=== PATIENT | female | born 1965 | race Caucasian/White ===

== ENCOUNTER 2017-05-03 20:30 | Inpatient (IN) | payer OTHER ==
[~2017-05-03] VITALS: Ht 172.7 cm; Wt 122.0 kg
[~2017-05-03 20:30] MED LIST: ALBU8.5H3 INH; ALBU8.5H5 IH; CLIN-73 PO; FAMO-95 PO; FLUT9.9S NASAL; GUAI-637 PO; HYDR-842 PO; RIVA20TA PO
[2017-05-03] MEDS ORDERED: PIPER-TAZO 3.375 GM IV (PMX) 100 ML IVPB STA (20:41)
[2017-05-03] MEDS ORDERED: ACETAMINOPHEN 325 MG TAB PO STA (20:56)
[2017-05-03] MEDS ORDERED: SODIUM CHLORIDE 0.9% 1L BAG IV* STA (20:56)
[2017-05-03] MEDS ORDERED: VANCOMYCIN 1 GM (PMX) 250 ML IVPB ONE ×2 (21:00→23:14)
[2017-05-03] MEDS ORDERED: HYDROmorphONE 1 MG/ML SYG IV STA (21:01)
[2017-05-03] MEDS ORDERED: ONDANSETRON 4 MG INJ IV STA (21:01)
--- NOTE | 2017-05-03 21:20 | RADRPT ---
PROCEDURE: XR Chest. CLINICAL INDICATION: Possible sepsis. TECHNIQUE: Single frontal view of the chest. Apical lordotic position. COMPARISON: 11/07/2015 FINDINGS: Heart size is mildly enlarged. Small hiatal hernia. The lungs are clear. No signs of pleural fluid o r pneumothorax are seen. The osseous structures and soft tissues are unremarkable. IMPRESSION: No evidence for active cardiopulmonary disease. RPTAT: [facility] Physician Jasmin Date Time Electronically viewed and signed by Nehemiah Shaw Physician on 05/03/2017 21:19 RS/
[2017-05-03] MEDS ORDERED: FURO40TA4 PO (21:34)
[2017-05-03] MEDS ORDERED: FURO20TA3 PO (21:34)
[2017-05-03] MEDS ORDERED: IBUP800T25 PO (21:35)
[2017-05-03] MEDS ORDERED: NAPR-688 PO (21:35)
[2017-05-03] MEDS ORDERED: FLUT12HF2 IH (21:36)
[2017-05-03] MEDS ORDERED: ALBU18HF INHALATION (21:36)
[2017-05-03 21:40] LABS: BASOPHIL # 0.1 10^3/ul (0.0-0.1); BASOPHILS % 0.4 % (0.0-2.0); EOSINOPHILS # 0.2 10^3/ul (0.0-0.5); EOSINOPHILS % 2.1 % (0.0-7.0); HEMATOCRIT 27.5 % (37.0-47.0); LYMPHOCYTES # 1.9 10^3/ul (0.8-2.9); LYMPHOCYTES % 17.1 % (15.0-51.0); MEAN CORPUSCULAR HEMOGLOBIN 22.5 pg (29.0-33.0); MEAN CORPUSCULAR HGB CONC 29.1 g/dl (32.0-37.0); MEAN CORPUSCULAR VOLUME 77.2 fl (82.0-101.0); MEAN PLATELET VOLUME 9.2 fl (7.4-10.4); MONOCYTE # 0.8 10^3/ul (0.3-0.9); MONOCYTES % 7.3 % (0.0-11.0); NEUTROPHIL # 8.1 10^3/ul (1.6-7.5); NEUTROPHILS % 72.2 % (39.0-77.0); NUCLEATED RED BLOOD CELLS% 0.3 /100WBC (0.0-0.0); PLATELET COUNT 335 10^3/UL (140-415); RED BLOOD COUNT 3.56 10^6/ul (4.20-5.40); RED CELL DISTRIBUTION WIDTH 18.9 % (11.5-14.5); WHITE BLOOD COUNT 11.2 10^3/ul (4.8-10.8)
[2017-05-03 21:44] LABS: INR 1.09; PROTIME 14.1 Sec (12.2-14.2); PT RATIO 1.1
[2017-05-03 21:45] LABS: PARTIAL THROMBOPLASTIN TIME 41.6 Sec (25.0-35.0)
[2017-05-03] MEDS ORDERED: ONDANSETRON 4 MG INJ IV PRN (22:00)
[2017-05-03] MEDS ORDERED: ACETAMINOPHEN 325 MG TAB PO PRN (22:00)
[2017-05-03 22:01] LABS: ALBUMIN/GLOBULIN RATIO 0.81; ANION GAP 10 (8-16)
[2017-05-03 22:04] LABS: ALANINE AMINOTRANSFERASE 27 IU/L (13-69); ALBUMIN 3.5 g/dl (3.3-4.9); ALKALINE PHOSPHATASE 120 IU/L (42-121); ASPARTATE AMINO TRANSFERASE 27 IU/L (15-46); BILIRUBIN,INDIRECT 0.4 mg/dl (0-1.1); BILIRUBIN,TOTAL 0.4 mg/dl (0.2-1.3); BLOOD UREA NITROGEN 10 mg/dl (7-20); CALCIUM 8.9 mg/dl (8.4-10.2); CARBON DIOXIDE 30 mmol/L (21-31); CHLORIDE 101 mmol/L (97-110); CREATININE 0.73 mg/dl (0.44-1.00); GLUCOSE 109 mg/dl (70-220); POTASSIUM 3.8 mmol/L (3.5-5.1); SODIUM 137 mmol/L (135-144); TOTAL PROTEIN 7.8 g/dl (6.1-8.1)
[2017-05-03 22:12] LABS: ADD UMIC YES; UR ASCORBIC ACID NEGATIVE (NEGATIVE); UR BILIRUBIN (Dip) NEGATIVE (NEGATIVE); UR BLOOD (Dip) NEGATIVE (NEGATIVE); UR CLARITY CLEAR (CLEAR); UR COLOR YELLOW (YELLOW); UR GLUCOSE (Dip) NEGATIVE (NEGATIVE); UR KETONES (Dip) NEGATIVE (NEGATIVE); UR LEUKOCYTE ESTERASE (Dip) NEGATIVE Leu/ul (NEGATIVE); UR MUCUS MANY /HPF (NONE SEEN); UR NITRITE (Dip) NEGATIVE (NEGATIVE); UR RBC 0 /HPF (0-5); UR SPECIFIC GRAVITY (Dip) 1.023 (1.003-1.030); UR SQUAMOUS EPITHELIAL CELL FEW /HPF (FEW); UR TOTAL PROTEIN (Dip) 1+ mg/dl (NEGATIVE); UR UROBILINOGEN (Dip) 2+ mg/dL (NEGATIVE)
[2017-05-03 22:13] LABS: TROPONIN-I < 0.012 ng/ml (0.00-0.12)
[2017-05-03 23:10] VITALS: TEMP 98.7
--- NOTE | 2017-05-03 23:29 | ERA ---
ER Documentation Chief Complaint Date/Time DATE: 05/03/17 TIME: 23:27 Chief Complaint BILATERAL LEG PAIN/EDEMA HPI Patient is a 51-year-old female with previous cellulitis who presents with bilateral lower extremity edema and infection. The patient was brought in by ambulance. She says that she had a recent admission to [place] 2 weeks ago and was supposed to be on antibiotics but could not get her Zyvox filled because of insurance. She says that she has pus from her bilateral lower extremities with oozing. Upon review of old medical records the patient has multiple visits to the hospital with admissions for cellulitis. She does not currently have a primary doctor. ROS All systems reviewed and are negative except as per history of present illness. Medications Home Meds Reported Medications Salmeterol Xinaf-Fluticasone* (Advair HFA*) 115/ Aerosol Inhaler, 2 INH IH BID , #1 INHALER 05/03/17 Albuterol Sulfate* (Ventolin HFA*) 18 Gm Hfa.aer.ad, 2 PUFF INHALATION Q6H, #1 INHALER 05/03/17 Naproxen* (Naproxen*) 500 Mg Tablet, 500 MG PO TID, TAB 05/03/17 Ibuprofen* (Ibuprofen*) 800 Mg Tab, 800 MG PO Q12 Y for PAIN, TAB 05/03/17 Furosemide* (Furosemide*) 40 Mg Tablet, 40 MG PO Q2D, TAB 05/03/17 Furosemide* (Furosemide*) 20 Mg Tablet, 20 MG PO Q2D, #60 TAB 05/03/17 Discontinued Scripts Fluticasone Propionate (Flonase Allergy Relief) 9.9 Ml [place].susp, 1 SPRAY NASAL BID for 30 Days, BOTTLE 4 Refills TO EACH NOSTRIL Prov:DOUGLAS JIMÉNEZ S. 11/11/15 Albuterol Sulfate* (Proair HFA*) 8.5 Gm Hfa.aer.ad, 2 PUFF INH Q4H Y for WHEEZING AND SOB for 30 Days, INHALER 4 Refills Prov:NORIS JIMÉNEZEEP S. 11/11/15 Guaifenesin* (Robitussin*) 100 Mg/5 Ml Syrup, 200 MG PO Q4H Y for COUGH for 14 Days, ML Prov:MARIA T JIMÉNEZP S. 11/11/15 Clindamycin Hcl* (Clindamycin Hcl*) 300 Mg Capsule, 300 MG PO Q8 for 7 Days, CAP Prov:RAHI,DOUGLAS S. 11/11/15 Famotidine* (Pepcid* AC) 20 Mg Tab, 20 MG PO Q12 for 30 Days, TAB Prov:RAHI,DOUGLAS S. 11/11/15 Hydroxyzine Hcl* (Atarax*) 25 Mg Tab, 25 MG PO TID for 30 Days, TAB Prov:RAHI,DOUGLAS S. 11/11/15 Rivaroxaban* (Xarelto*) 20 Mg Tablet, 20 MG PO WITH DINNER for 30 Days, TAB 2 Refills Prov:RAHI,DOUGLAS S. 11/11/15 Albuterol Sulfate* (Albuterol Sulfate* HFA) 8.5 Gm Hfa.aer.ad, 2 PUFF IH Q4H Y for WHEEZING AND SOB, #1 INH Prov:LADONNA TEJADA 03/24/15 Allergies Allergies: Coded Allergies: No Known Allergy (Unverified , 05/03/17) PMhx/Soc History of Surgery: Yes (Right hip replacement- 1996, ear surgeries as a child) Anesthesia Reaction: No Hx Neurological Disorder: No Hx Respiratory Disorders: Yes (Asthma, COPD) Hx Cardiac Disorders: No Hx Psychiatric Problems: No Hx Miscellaneous Medical Probl: No Hx Alcohol Use: Yes (1/2 pint of beer, vodka daily) Hx Substance Use: Yes (METH) Hx Tobacco Use: Yes (Smokes some days) Smoking Status: Smoker,current status unk FmHx Family History: diabetes Physical Exam Vitals Vital Signs Date Time Temp Pulse Resp B/P Pulse Ox O2 Delivery O2 Flow Rate FiO2 05/03/17 23:10 98.7 110 16 128/78 100 Room Air 05/03/17 20:45 100.1 116 16 133/89 100 Physical Exam Const: Moderate distress secondary to pain Head: Atraumatic Eyes: Normal Conjunctiva ENT: Normal External Ears, Nose and Mouth. Neck: Full range of motion..~ No meningismus. Resp: Clear to auscultation bilaterally Cardio: Regular rate and rhythm, no murmurs Abd: Soft, non tender, non distended. Normal bowel sounds Skin: Bilateral lower extremity edema with oozing and redness consistent with cellulitis Back: No midline or flank tenderness Ext: No cyanosis, or edema Neur: Awake and alert Psych: Normal Mood and Affect Result Diagram: 05/03/17 2113 05/03/17 1354 Results 24 hrs Laboratory Tests Test 05/03/17 13:54 05/03/17 21:13 05/03/17 21:40 Prothrombin Time 14.1Sec Prothrombin Time Ratio 1.1 INR International Normalized Ratio 1.09 Activated Partial Thromboplast Time 41.6Sec Sodium Level 137mmol/L Potassium Level 3.8mmol/L Chloride Level 101mmol/L Carbon Dioxide Level 30mmol/L Anion Gap 10 Blood Urea Nitrogen 10mg/dl Creatinine 0.73mg/dl Glucose Level 109mg/dl Lactic Acid Level 1.2mmol/L Calcium Level 8.9mg/dl Total Bilirubin 0.4mg/dl Direct Bilirubin 0.00mg/dl Indirect Bilirubin 0.4mg/dl Aspartate Amino Transf (AST/SGOT) 27IU/L Alanine Aminotransferase (ALT/SGPT) 27IU/L Alkaline Phosphatase 120IU/L Troponin I < 0.012ng/ml Total Protein 7.8g/dl Albumin 3.5g/dl Globulin 4.30g/dl Albumin/Globulin Ratio 0.81 White Blood Count 11.210^3/ul Red Blood Count 3.5610^6/ul Hemoglobin 8.0g/dl Hematocrit 27.5% Mean Corpuscular Volume 77.2fl Mean Corpuscular Hemoglobin 22.5pg Mean Corpuscular Hemoglobin Concent 29.1g/dl Red Cell Distribution Width 18.9% Platelet Count 58784^3/UL Mean Platelet Volume 9.2fl Neutrophils % 72.2% Lymphocytes % 17.1% Monocytes % 7.3% Eosinophils % 2.1% Basophils % 0.4% Nucleated Red Blood Cells % 0.3/100WBC Neutrophils # 8.110^3/ul Lymphocytes # 1.910^3/ul Monocytes # 0.810^3/ul Eosinophils # 0.210^3/ul Basophils # 0.110^3/ul Nucleated Red Blood Cells # 0.010^3/ul Urine Color YELLOW Urine Clarity CLEAR Urine pH 5.0 Urine Specific [place] 1.023 Urine Ketones NEGATIVEmg/dL Urine Nitrite NEGATIVEmg/dL Urine Bilirubin NEGATIVEmg/dL Urine Urobilinogen 2+mg/dL Urine Leukocyte Esterase NEGATIVELeu/ul Urine Microscopic RBC 0/HPF Urine Microscopic WBC 0/HPF Urine Squamous Epithelial Cells FEW/HPF Urine Mucus MANY/HPF Urine Hemoglobin NEGATIVEmg/dL Urine Glucose NEGATIVEmg/dL Urine Total Protein 1+mg/dl Current Medications Medications (Trade) Dose Ordered Sig/Delores Route PRN Reason Start Time Stop Time Status Last Admin Dose Admin Vancomycin HCl 250 ml @ 125 mls/hr ONCE ONCE IVPB 05/03/17 21:00 05/03/17 22:59 Cancel Piperacillin Sod/ Tazobactam Sod (Zosyn 3.375gm/ 100 ml (Pmx)) 100 ml @ 200 mls/hr ONCE STAT IVPB 05/03/17 20:41 05/03/17 21:10 DC 05/03/17 20:41 Sodium Chloride (NS) 3,880 ml BOLUS OVER 2 HOURS STAT IV* 05/03/17 20:56 05/03/17 20:57 DC 05/03/17 21:47 Acetaminophen (Tylenol Tab) 650 mg ONCE STAT PO 05/03/17 20:56 05/03/17 20:57 DC 05/03/17 21:47 Hydromorphone HCl (Dilaudid) 1 mg ONCE STAT IV 05/03/17 21:01 05/03/17 21:02 DC 05/03/17 21:22 Ondansetron HCl (Zofran Inj) 4 mg ONCE STAT IV 05/03/17 21:01 05/03/17 21:02 DC 05/03/17 21:31 Ondansetron HCl (Zofran Inj) 4 mg BRIDGE ORDER PRN IV NAUSEA AND/OR VOMITING 05/03/17 22:00 05/04/17 21:59 Acetaminophen 650 mg 650 mg ER BRIDGE PRN PO MILD PAIN/FEVER 05/03/17 22:00 05/04/17 21:59 Vancomycin HCl (Vancocin) 250 ml @ 125 mls/hr ONCE ONCE IVPB 05/03/17 23:14 05/04/17 01:13 Procedures/MDM EKG read by me: Rate/Rhythm: Regular rate and rhythm at a normal rate Intervals: Normal Impression: No evidence of ischemia or arrhythmia Patient is a 51-year-old female presents with bilateral lower extremity cellulitis. I doubt sepsis at this time. The patient has anemia with a hemoglobin of 8.0 but does not require transfusion. The patient was given broad -spectrum antibiotics with vancomycin and Zosyn. I spoke with Dr. Hernandez for admission to a medical surgical bed. Departure Diagnosis: Primary Impression: Bilateral leg pain Additional Impression: Cellulitis Qualified Code: L03.119 - Cellulitis of lower extremity, unspecified laterality Condition: KILEY Sifuentes MD May 03, 2017 23:29
[2017-05-03 23:31] VITALS: BP 116/60; RESP 20
[2017-05-04] MEDS ORDERED: VANCOMYCIN IV PER PHARMACY XX SCH
[2017-05-04] MEDS ORDERED: ONDANSETRON 4 MG INJ IV PRN
[2017-05-04 00:04] VITALS: Ht 172.7 cm; Wt 122.0 kg
[2017-05-04] MEDS: morphine 4 MG/ML VIAL IV PRN ×2 (00:25→10:17)
[2017-05-04] MEDS ORDERED: VANCOMYCIN 2 GM in SOD CHLORIDE 0.9% 500 ML IVPB ONE (01:00)
[2017-05-04 02:04] VITALS: BP 127/74; RESP 20
[2017-05-04] MEDS ORDERED: ALBUTEROL/IPRATROPIUM (NEB) 3 ML AMP HHN PRN (05:30)
[2017-05-04] MEDS: HYDROCODONE/APAP (10/325) TAB PO PRN ×2 (05:37→15:55)
[2017-05-04] MEDS: FUROSEMIDE 40 MG TAB PO SCH (05:37)
[2017-05-04 06:23] LABS: ABNORMAL IP MESSAGE 1; BASOPHILS % 0.4 % (0.0-2.0); EOSINOPHILS # 0.2 10^3/ul (0.0-0.5); EOSINOPHILS % 2.3 % (0.0-7.0); HEMATOCRIT 24.8 % (37.0-47.0); HEMOGLOBIN 7.1 g/dl (12.0-16.0); LYMPHOCYTES # 1.4 10^3/ul (0.8-2.9); LYMPHOCYTES % 14.8 % (15.0-51.0); MEAN CORPUSCULAR HEMOGLOBIN 22.4 pg (29.0-33.0); MEAN CORPUSCULAR HGB CONC 28.6 g/dl (32.0-37.0); MEAN CORPUSCULAR VOLUME 78.2 fl (82.0-101.0); MEAN PLATELET VOLUME 9.5 fl (7.4-10.4); MONOCYTE # 0.7 10^3/ul (0.3-0.9); MONOCYTES % 7.4 % (0.0-11.0); NEUTROPHIL # 6.8 10^3/ul (1.6-7.5); NEUTROPHILS % 74.2 % (39.0-77.0); PLATELET COUNT 281 10^3/UL (140-415); RED BLOOD COUNT 3.17 10^6/ul (4.20-5.40); WHITE BLOOD COUNT 9.1 10^3/ul (4.8-10.8)
[2017-05-04 06:34] LABS: ALBUMIN 2.8 g/dl (3.3-4.9); ALBUMIN/GLOBULIN RATIO 0.71; BILIRUBIN,INDIRECT 0.3 mg/dl (0-1.1); BILIRUBIN,TOTAL 0.3 mg/dl (0.2-1.3); CALCIUM 7.9 mg/dl (8.4-10.2); CREATININE 0.65 mg/dl (0.44-1.00); MAGNESIUM 1.9 mg/dl (1.7-2.5); PHOSPHORUS 3.3 mg/dl (2.5-4.9); POTASSIUM 3.4 mmol/L (3.5-5.1); TOTAL PROTEIN 6.7 g/dl (6.1-8.1)
[2017-05-04 06:37] LABS: POSITIVE DIFF @See below
--- NOTE | 2017-05-04 06:37 | HP ---
Date/Time of Note Date/Time of Note DATE: 05/04/17 TIME: 06:27 Assessment/Plan VTE Prophylaxis VTE Prophylaxis Intervention: heparin Lines/Catheters IV [facility] Saline Lock Assessment/Plan Assessment/Plan 1. Bilateral lower extremity cellulitis/open ulceration -IV antibiotic -Wound culture -Wound care and ID consult -Order bilateral Doppler ultrasound to evaluate for DVT 2. COPD exacerbation -Patient does appear to be short of breath and on physical exam has wheezing -Supplemental oxygen, bronchodilators and inhaled and IV steroids 3. History of right femoral DVT -Patient has previously been on Xarelto -Doppler ultrasound to evaluate for a DVT 4. Iron deficiency anemia -Will check iron profile and ferritin. If severe deficiency, she will benefit from IV iron. She will be on ferrous sulfate -Will order FOBT -Monitor H&H and transfuse as needed 5. Morbid obesity with BMI of 41 -Weight reduction advised HPI/ROS Admit Date/Time Admit Date/Time May 03, 2017 at 21:34 Hx of Present Illness This is a 59-year-old morbidly obese female with a history of COPD, polysubstance abuse, right femoral DVT and chronic bilateral lower extremity cellulitis/ulcer who presented to the ER complaining of worsening bilateral lower extremity cellulitis/ulcer. She said that this problem has been going on for the past 3 years requiring multiple hospitalizations. She was last hospitalized about 2 weeks ago at [facility] for the same reason. She said she was discharged on Zyvox and clindamycin but she was not able to fill the prescription because of insurance reasons. She has been noticing draining pus from both of her shins. He has also noted progressively worsening redness and pain on both of her legs. PMH/Family/Social Social History Smoking Status: Current every day smoker Exam/Review of Systems Vital Signs Vitals Vital Signs Date Time Temp Pulse Resp B/P Pulse Ox O2 Delivery O2 Flow Rate FiO2 05/04/17 05:45 96 26 89 21 05/04/17 05:45 2.0 05/04/17 02:04 99.6 127/74 05/03/17 23:10 Room Air Exam Constitutional: other (Mild distress when talking due to shortness of breath) Head: atraumatic, normocephalic Eyes: EOMI, PERRL Respiratory: wheezing Cardiovascular: regular rate and rhythm Gastrointestinal: non-tender, soft Extremities: other (Significant erythema with swelling of her bilateral shins. There is also some drainage from both legs.) Labs Result Diagram: 05/03/17 2113 05/03/17 1354 Medications Medications Current Medications Cefepime HCl (Maxipime 1gm/50 ml (Pmx)) 50 ml @ 100 mls/hr Q12 IVPB ; Start at 09:00 Acetaminophen (Tylenol Tab) 650 mg Q6H PRN PO PAIN AND OR ELEVATED TEMP; Start 05/04/17 at 00:00 Ondansetron HCl (Zofran Inj) 4 mg Q6H PRN IV NAUSEA AND/OR VOMITING; Start at 00:00 Morphine Sulfate (morphine) 3 mg Q4H PRN IV PAIN Last administered on 00:25; Admin Dose 3 MG; Start 05/04/17 at 00:00 Heparin Sodium (Porcine) (Heparin (5000 Units/0.5 ml)) 5,000 unit BID SC ; Start 05/04/17 at 09:00 Furosemide (Lasix) 40 mg DAILY@06 PO Last administered on 05/04/17 05:37; Admin Dose 40 MG; Start 05/04/17 at 06:00 Ibuprofen (Motrin) 800 mg Q12H PRN PO PAIN; Start 05/04/17 at 00:00 Salmeterol Xinafoate/ Fluticasone 1 inh 1 inh BID INH ; Start 05/04/17 at 09:00 Vancomycin HCl/ Sodium Chloride (Vancocin/NS) 250 ml @ 83.333 mls/ hr Q12H IVPB ; Start 05/04/17 at 13:00 Acetaminophen/ Hydrocodone Bitart ([place] (10/325)) 1 tab Q6H PRN PO PAIN Last administered on 05/04/17 05:37; Admin Dose 1 TAB; Start 05/04/17 at 05:30 MONTSERRAT CONNELL MD May 04, 2017 06:37
[2017-05-04 07:07] LABS: IRON 30 ug/dl (35-150)
[2017-05-04 07:16] LABS: TOTAL IRON BINDING CAPACITY 280 ug/dl (241-421)
[2017-05-04 07:59] VITALS: BP 116/57; RESP 22
[2017-05-04] MEDS: SALMETEROL/FLUTICASONE 100/50 INHA INH SCH ×2 (09:00→21:00)
[2017-05-04] MEDS: CEFEPIME 1GM/50 ML (PMX) 50 ML IVPB SCH ×2 (09:00→10:17)
--- NOTE | 2017-05-04 10:28 | RADRPT ---
PROCEDURE: US Lower extremity Venous. CLINICAL INDICATION: Bilateral lower extremity edema TECHNIQUE: Multiple sonographic images of the bilateral lower extremity deep venous system was obt ained utilizing grayscale, color-flow, compressive sonography and doppler imaging with augmentation. The images were reviewed on a PACS workstation. COMPARISON: 11/04/2015 FINDINGS: There is normal compressibility and flow within the bilateral common femoral, femoral , posterior ti bial and popliteal veins. RPTAT: AA IMPRESSION: No sonographic evidence for deep venous thrombosis. .García Hackett MD, MD Date Time Electronically viewed and signed by .García Hackett MD, on 05/04/2017 10:28 .S/
[2017-05-04] MEDS: HEPARIN 5,000 UNIT/0.5 ML VIAL SC SCH ×2 (11:29→22:32)
[2017-05-04] MEDS ORDERED: POTASSIUM CHLORIDE (SR) 20 MEQ TAB PO STA (12:14)
--- NOTE | 2017-05-04 12:23 | PN ---
Date/Time of Note Date/Time of Note DATE: 05/04/17 TIME: 12:18 Assessment/Plan VTE Prophylaxis VTE Prophylaxis Intervention: heparin Lines/Catheters IV [facility] ([facility]): Saline Lock Assessment/Plan Chief Complaint/Hosp Course Assessment/Plan: 59-year-old morbidly obese female with a history of COPD, polysubstance abuse, right femoral DVT and chronic bilateral lower extremity cellulitis/ulcer who presented to the ER complaining of worsening bilateral lower extremity cellulitis/ulcer. 1. Bilateral lower extremity cellulitis/open ulceration -IV antibiotic -Wound culture -Wound care and ID consult 2. COPD exacerbation -Patient does appear to be short of breath and on physical exam has wheezing -Supplemental oxygen, bronchodilators and inhaled and IV steroids 3. History of right femoral DVT -Patient has previously been on Xarelto -Doppler ultrasound to evaluate for a DVT 4. Iron deficiency anemia -Will check iron profile and ferritin. If severe deficiency, she will benefit from IV iron. She will be on ferrous sulfate -Will order FOBT -Monitor H&H and transfuse as needed 5. Morbid obesity with BMI of 41 -Weight reduction advised Problems: Subjective 24 Hr Interval Summary Free Text/Dictation Patient complaining of some diarrhea and still lower extremity pain. Exam/Review of Systems Vital Signs Vitals Vital Signs Date Time Temp Pulse Resp B/P Pulse Ox O2 Delivery O2 Flow Rate FiO2 05/04/17 07:59 99.8 88 22 116/57 92 05/04/17 05:45 21 05/04/17 05:45 2.0 05/03/17 23:10 Room Air Intake and Output 05/03/17 05/03/17 05/04/17 15:00 23:00 07:00 Intake Total 500 ml Balance 500 ml Exam Constitutional: other (Mild distress when talking due to shortness of breath) Head: atraumatic, normocephalic Eyes: EOMI, PERRL Respiratory: Positive wheezing Cardiovascular: regular rate and rhythm Gastrointestinal: non-tender, soft Extremities: other (Significant erythema with swelling of her bilateral shins. There is also some drainage from both legs.) Results Result Diagram: 05/04/17 0512 05/04/17 0512 Results 24 hrs Laboratory Tests Test 05/03/17 13:54 05/03/17 21:13 05/03/17 21:40 05/03/17 23:42 Prothrombin Time 14.1 Prothrombin Time Ratio 1.1 INR International Normalized Ratio 1.09 Activated Partial Thromboplast Time 41.6 H Sodium Level 137 Potassium Level 3.8 Chloride Level 101 Carbon Dioxide Level 30 Anion Gap 10 Blood Urea Nitrogen 10 Creatinine 0.73 Glucose Level 109 Lactic Acid Level 1.2 0.6 Calcium Level 8.9 Total Bilirubin 0.4 Direct Bilirubin 0.00 Indirect Bilirubin 0.4 Aspartate Amino Transf (AST/SGOT) 27 Alanine Aminotransferase (ALT/SGPT) 27 Alkaline Phosphatase 120 Troponin I < 0.012 Total Protein 7.8 Albumin 3.5 Globulin 4.30 H Albumin/Globulin Ratio 0.81 White Blood Count 11.2 #H Red Blood Count 3.56 #L Hemoglobin 8.0 #L Hematocrit 27.5 L Mean Corpuscular Volume 77.2 L Mean Corpuscular Hemoglobin 22.5 L Mean Corpuscular Hemoglobin Concent 29.1 L Red Cell Distribution Width 18.9 H Platelet Count 335 Mean Platelet Volume 9.2 Neutrophils % 72.2 Lymphocytes % 17.1 Monocytes % 7.3 Eosinophils % 2.1 Basophils % 0.4 Nucleated Red Blood Cells % 0.3 H Neutrophils # 8.1 H Lymphocytes # 1.9 Monocytes # 0.8 Eosinophils # 0.2 Basophils # 0.1 Nucleated Red Blood Cells # 0.0 Urine Color YELLOW Urine Clarity CLEAR Urine pH 5.0 Urine Specific [place] 1.023 Urine Ketones NEGATIVE Urine Nitrite NEGATIVE Urine Bilirubin NEGATIVE Urine Urobilinogen 2+ H Urine Leukocyte Esterase NEGATIVE Urine Microscopic RBC 0 Urine Microscopic WBC 0 Urine Squamous Epithelial Cells FEW Urine Mucus MANY A Urine Hemoglobin NEGATIVE Urine Glucose NEGATIVE Urine Total Protein 1+ H Test 05/04/17 00:36 05/04/17 05:12 05/04/17 05:14 Lactic Acid Level 0.8 White Blood Count 9.1 Red Blood Count 3.17 L Hemoglobin 7.1 L Hematocrit 24.8 L Mean Corpuscular Volume 78.2 L Mean Corpuscular Hemoglobin 22.4 L Mean Corpuscular Hemoglobin Concent 28.6 L Red Cell Distribution Width 19.0 H Platelet Count 281 Mean Platelet Volume 9.5 Neutrophils % 74.2 Lymphocytes % 14.8 L Monocytes % 7.4 Eosinophils % 2.3 Basophils % 0.4 Nucleated Red Blood Cells % 0.0 Neutrophils # 6.8 Lymphocytes # 1.4 Monocytes # 0.7 Eosinophils # 0.2 Basophils # 0.0 Nucleated Red Blood Cells # 0.0 Sodium Level 136 Potassium Level 3.4 L Chloride Level 105 Carbon Dioxide Level 27 Anion Gap 7 L Blood Urea Nitrogen 9 Creatinine 0.65 Glucose Level 113 Calcium Level 7.9 L Phosphorus Level 3.3 Magnesium Level 1.9 Total Bilirubin 0.3 Direct Bilirubin 0.00 Indirect Bilirubin 0.3 Aspartate Amino Transf (AST/SGOT) 22 Alanine Aminotransferase (ALT/SGPT) 27 Alkaline Phosphatase 100 Total Protein 6.7 # Albumin 2.8 L Globulin 3.90 H Albumin/Globulin Ratio 0.71 Iron Level 30 L Total Iron Binding Capacity 280 Percent Iron Saturation 11 L Ferritin 15.6 Medications Medications Current Medications Cefepime HCl (Maxipime 1gm/50 ml (Pmx)) 50 ml @ 100 mls/hr Q12 IVPB Last administered on 05/04/17 10:17; Admin Dose 100 MLS/HR; Start 05/04/17 at 09:00 Acetaminophen (Tylenol Tab) 650 mg Q6H PRN PO PAIN AND OR ELEVATED TEMP; Start 05/04/17 at 00:00 Ondansetron HCl (Zofran Inj) 4 mg Q6H PRN IV NAUSEA AND/OR VOMITING; Start at 00:00 Morphine Sulfate (morphine) 3 mg Q4H PRN IV PAIN Last administered on 10:17; Admin Dose 3 MG; Start 05/04/17 at 00:00 Heparin Sodium (Porcine) (Heparin (5000 Units/0.5 ml)) 5,000 unit BID SC Last administered on 05/04/17 11:29; Admin Dose 5,000 UNIT; Start 05/04/17 at 09:00 Furosemide (Lasix) 40 mg DAILY@06 PO Last administered on 05/04/17 05:37; Admin Dose 40 MG; Start 05/04/17 at 06:00 Ibuprofen (Motrin) 800 mg Q12H PRN PO PAIN; Start 05/04/17 at 00:00 Salmeterol Xinafoate/ Fluticasone 1 inh 1 inh BID INH ; Start 05/04/17 at 09:00 Vancomycin HCl/ Sodium Chloride (Vancocin/NS) 250 ml @ 83.333 mls/ hr Q12H IVPB ; Start 9/16/17 at 13:00 Acetaminophen/ Hydrocodone Bitart ([place] ()) 1 tab Q6H PRN PO PAIN Last administered on 05/04/17t 05:37; Admin Dose 1 TAB; Start 05/04/17 at 05:30 Miscellaneous Information (*Rx Drug Level Order Reminder*) VANCOMYCIN TROUGH AT 1200 ONCE ONCE XX ; Start 05/05/17 at 12:00; Stop 05/05/17 at 12:01 DOUGLAS JIMÉNEZ May 04, 2017 12:22
[2017-05-04] MEDS: ACETAMINOPHEN 325 MG TAB PO PRN ×2 (12:57→22:23)
[2017-05-04] MEDS: METHYLPREDNISOLONE 125 MG INJ IV SCH ×2 (12:58→18:00)
[2017-05-04] MEDS: ALBUTEROL/IPRATROPIUM (NEB) 3 ML AMP HHN SCH ×3 (13:00→20:28)
[2017-05-04] MEDS ORDERED: VANCOMYCIN 1.5 GM in SOD CHLORIDE 0.9% 250 ML IVPB SCH (13:00)
[2017-05-04 15:00] VITALS: BP 123/61; RESP 18
[2017-05-04] MEDS: LINEZOLID 600 MG/D5W (PMX) 300 ML IVPB SCH ×2 (15:05→22:22)
[2017-05-04] MEDS: IBUPROFEN 800 MG TAB PO PRN (16:31)
--- NOTE | 2017-05-04 16:51 | CONS ---
Date/Time of Note Date/Time of Note DATE: 05/04/17 TIME: 16:39 Assessment/Plan Assessment/Plan Chief Complaint/Hosp Course ID PROGRESS NOTE: CURRENT ABX: Zyvox + Levaquin * Fevers, leukocytosis resolving. Pt is resting comfortably supplemental O2 via NC * BLEXT acute cellulitis chronic venous stasis edema -- open wound cx in process * 05/04/17 BLEXT US: .No sonographic evidence for deep venous thrombosis. PHYSICAL EXAMINATION: GENERAL: Well-developed, obese, middle-aged woman, who is alert, in no distress. HEENT: Unremarkable NECK: Supple, trachea midline. CHEST: Chest rise is symmetrical. Breath sounds diminished to the bases. HEART: S1, S2. ABDOMEN: Soft, bowel sounds present. EXTREMITIES: With bilateral lower extremity erythema, edema and chronic wounds. ID ASSESSMENT: 51 yo morbid obese F w/BMI > 40 admit with: 1. SIRS w/fevers, tachycardia due to #1 & #2 2. Acute on chronic bilateral lower extremity cellulitis * Open venous ulcerations * 05/04/17 BLEXT US: .No sonographic evidence for deep venous thrombosis. 3. Hx of prior BLEXT DVT => Chronic Hypercoagulable state = likely related to obesity, metabolic syndrome, immobility. * Hx LLE DVT in Mar 2015, and apparently has been on/off Xarelto since early March 2015. * Hx of RLEXT = Right femoral vein DVT October 2015 4. Acute COPD exacerbation * Chronic obstructive pulmonary disease/ EDUARDO/suspect obesity hypoventilation syndrome 5. History of noncompliance. 6. History of polysubstance abuse. 7. Iron deficiency anemia 8. Hx of Right Total Hip Replacement 1996 MRSA Nares = pending ABX ALLERGY: SULFA per prior notes ? CURRENT ABX: Zyvox + Levaquin ID RECOMMENDATIONS/PLAN: 1. f/u MRSA nares screen still pending 2. Continue current ABX . Problems: Consultation Date/Type/Reason Admit Date/Time May 03, 2017 at 21:34 Initial Consult Date Exam/Review of Systems Vital Signs Vitals Vital Signs Date Time Temp Pulse Resp B/P Pulse Ox O2 Delivery O2 Flow Rate FiO2 05/04/17 15:00 98.9 83 18 123/61 96 05/04/17 05:45 21 05/04/17 05:45 2.0 05/03/17 23:10 Room Air Intake and Output 05/03/17 05/03/17 05/04/17 14:59 22:59 06:59 Intake Total 500 ml Balance 500 ml Results Result Diagram: 05/04/17 0512 05/04/17 0512 Results 24 hrs Laboratory Tests Test 05/03/17 21:13 05/03/17 21:40 05/03/17 23:42 05/04/17 00:36 White Blood Count 11.2 #H Red Blood Count 3.56 #L Hemoglobin 8.0 #L Hematocrit 27.5 L Mean Corpuscular Volume 77.2 L Mean Corpuscular Hemoglobin 22.5 L Mean Corpuscular Hemoglobin Concent 29.1 L Red Cell Distribution Width 18.9 H Platelet Count 335 Mean Platelet Volume 9.2 Neutrophils % 72.2 Lymphocytes % 17.1 Monocytes % 7.3 Eosinophils % 2.1 Basophils % 0.4 Nucleated Red Blood Cells % 0.3 H Neutrophils # 8.1 H Lymphocytes # 1.9 Monocytes # 0.8 Eosinophils # 0.2 Basophils # 0.1 Nucleated Red Blood Cells # 0.0 Urine Color YELLOW Urine Clarity CLEAR Urine pH 5.0 Urine Specific [place] 1.023 Urine Ketones NEGATIVE Urine Nitrite NEGATIVE Urine Bilirubin NEGATIVE Urine Urobilinogen 2+ H Urine Leukocyte Esterase NEGATIVE Urine Microscopic RBC 0 Urine Microscopic WBC 0 Urine Squamous Epithelial Cells FEW Urine Mucus MANY A Urine Hemoglobin NEGATIVE Urine Glucose NEGATIVE Urine Total Protein 1+ H Lactic Acid Level 0.6 0.8 Test 05/04/17 05:12 05/04/17 05:14 White Blood Count 9.1 Red Blood Count 3.17 L Hemoglobin 7.1 L Hematocrit 24.8 L Mean Corpuscular Volume 78.2 L Mean Corpuscular Hemoglobin 22.4 L Mean Corpuscular Hemoglobin Concent 28.6 L Red Cell Distribution Width 19.0 H Platelet Count 281 Mean Platelet Volume 9.5 Neutrophils % 74.2 Lymphocytes % 14.8 L Monocytes % 7.4 Eosinophils % 2.3 Basophils % 0.4 Nucleated Red Blood Cells % 0.0 Neutrophils # 6.8 Lymphocytes # 1.4 Monocytes # 0.7 Eosinophils # 0.2 Basophils # 0.0 Nucleated Red Blood Cells # 0.0 Sodium Level 136 Potassium Level 3.4 L Chloride Level 105 Carbon Dioxide Level 27 Anion Gap 7 L Blood Urea Nitrogen 9 Creatinine 0.65 Glucose Level 113 Calcium Level 7.9 L Phosphorus Level 3.3 Magnesium Level 1.9 Total Bilirubin 0.3 Direct Bilirubin 0.00 Indirect Bilirubin 0.3 Aspartate Amino Transf (AST/SGOT) 22 Alanine Aminotransferase (ALT/SGPT) 27 Alkaline Phosphatase 100 Total Protein 6.7 # Albumin 2.8 L Globulin 3.90 H Albumin/Globulin Ratio 0.71 Iron Level 30 L Total Iron Binding Capacity 280 Percent Iron Saturation 11 L Ferritin 15.6 Medications Medications Current Medications Acetaminophen (Tylenol Tab) 650 mg Q6H PRN PO PAIN AND OR ELEVATED TEMP Last administered on 05/04/17 12:57; Admin Dose 650 MG; Start 05/04/17 at 00:00 Ondansetron HCl (Zofran Inj) 4 mg Q6H PRN IV NAUSEA AND/OR VOMITING; Start at 00:00 Heparin Sodium (Porcine) (Heparin (5000 Units/0.5 ml)) 5,000 unit BID SC Last administered on 05/04/17 11:29; Admin Dose 5,000 UNIT; Start 05/04/17 at 09:00 Furosemide (Lasix) 40 mg DAILY@06 PO Last administered on 05/04/17 05:37; Admin Dose 40 MG; Start 05/04/17 at 06:00 Ibuprofen (Motrin) 800 mg Q12H PRN PO PAIN Last administered on 05/04/17 16:31 ; Admin Dose 800 MG; Start 05/04/17 at 00:00 Salmeterol Xinafoate/ Fluticasone (Advair 100/50 Diskus) 1 inh BID INH ; Start 05/04/17 at 09:00 Acetaminophen/ Hydrocodone Bitart 1 tab 1 tab Q6H PRN PO PAIN Last administered on 05/04/17 15:55; Admin Dose 1 TAB; Start 05/04/17 at 05:30 Linezolid (Zyvox 600mg/D5W (Pmx)) 300 ml @ 300 mls/hr Q12 IVPB Last administered on 05/04/17 15:05; Admin Dose 300 MLS/HR; Start 05/04/17 at 13:30 Methylprednisolone Sodium Succinate (Solu-Medrol) 80 mg Q6 IV Last administered on 05/04/17 12:58; Admin Dose 80 MG; Start 05/04/17 at 12:30 Morphine Sulfate (morphine) 2 mg Q4H PRN IV PAIN; Start 05/04/17 at 16:00 Zolpidem Tartrate (Ambien) 2.5 mg HS PRN PO INSOMNIA; Start 05/04/17 at 12:30 Levofloxacin (Levaquin) 750 mg DAILY@06 PO ; Start 05/05/17 at 06:00 MICHELLE HILL NP May 04, 2017 16:50
--- NOTE | 2017-05-04 19:55 | CONS ---
DATE OF ADMISSION: 05/03/2017 DATE OF CONSULTATION: 05/04/2017 REASON FOR CONSULTATION: Antibiotic management. The patient is a 59-year-old, morbidly obese female, with a history of COPD, who is being seen now for bilateral lower extremity cellulitis. PAST MEDICAL HISTORY: Past problems include, 1. Morbid obesity. 2. COPD. 3. Polysubstance abuse. 4. Right femoral DVT. 5. Chronic bilateral lower extremity cellulitis./ulcer. 6. Asthma. HISTORY OF PRESENT ILLNESS: She presented to the emergency room complaining of worsening bilateral lower extremity cellulitis with open ulceration. According to the patient, this has been going on for the past 3 years and she has been hospitalized on many occasions. She was hospitalized about 2 weeks ago at [facility] for the same reason. She was discharged on Zyvox and clindamycin, but was not able to fill the prescription because of insurance reasons. She notices that pus has been draining from both of her shins with progressive worsening, redness and pain in both legs. PAST SURGICAL HISTORY: Status post right hip replacement in 1996. Ear surgeries as a child. FAMILY HISTORY: Noncontributory. SOCIAL HISTORY: She smokes on a regular basis, she drinks half a pint of beer and vodka daily, and she has a history of methamphetamine abuse. ALLERGIES: NONE TO PENICILLIN, SULFA, OR FOODS. MEDICATIONS: Per chart. REVIEW OF SYSTEMS: As per HPI. PHYSICAL EXAMINATION: GENERAL: Patient is a morbidly obese female, who is in moderate distress secondary to pain. VITAL SIGNS: T-max is 100.1, currently 99.8. SKIN: Without generalized rash. HEENT: Within normal limits. NECK: Supple. Lymph nodes nonpalpable. CHEST: Decreased breath sounds at the bases. HEART: Without murmur or gallop. ABDOMEN: Soft, obese, nontender, without organosplenomegaly or masses. EXTREMITIES: She has significant erythema on both anterior tibial areas with swelling and drainage from both flanks. RECTAL/GENITAL: Deferred. NEUROLOGICAL: No focal neurological abnormalities. LABORATORY: On admission, her white count was 11.2, H and H of 8 and 27.5, platelet count 335,000. BUN and creatinine 10 and 0.73, glucose 103. Patient was started on vancomycin and also on cefepime. She was, I believe, switched over to linezolid, so she is on linezolid and vancomycin. She does not, I believe, need both. Microbiology is pending. White count today is 9.1, H and H of 7.1, 24.8, platelet count 281,000. DVT study, no sonographic evidence for deep vein thrombophlebitis. She has no known allergies. Her chest x-ray is negative. 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 In addition, she has no kidney problems, so the vancomycin would not be a problem. Going to add Levaquin to her regimen. There is drainage from the wound, it should be cultured. She has had blood cultures, wound cultures from both legs, urine culture. Dictated By: Gerardo Harris MD JD/bruce/yamileth /Document#: [id number]
[2017-05-04 20:00] VITALS: BP 117/70; RESP 18
[2017-05-05] MEDS: METHYLPREDNISOLONE 125 MG INJ IV SCH ×2 (00:09→05:48)
[2017-05-05] MEDS: ALBUTEROL/IPRATROPIUM (NEB) 3 ML AMP HHN SCH ×6 (00:51→20:30)
[2017-05-05 01:36] VITALS: BP 125/67; RESP 18
[2017-05-05] MEDS: FUROSEMIDE 40 MG TAB PO SCH (05:47)
[2017-05-05] MEDS: LEVOFLOXACIN 750 MG TABLET PO SCH (05:47)
[2017-05-05] MEDS: HYDROCODONE/APAP (10/325) TAB PO PRN ×3 (06:02→21:56)
[2017-05-05 06:25] LABS: BASOPHILS % 0.1 % (0.0-2.0); HEMATOCRIT 28.2 % (37.0-47.0); HEMOGLOBIN 8.4 g/dl (12.0-16.0); LYMPHOCYTES % 12.7 % (15.0-51.0); MEAN CORPUSCULAR HEMOGLOBIN 23.6 pg (29.0-33.0); MEAN CORPUSCULAR HGB CONC 29.8 g/dl (32.0-37.0); MEAN CORPUSCULAR VOLUME 79.2 fl (82.0-101.0); MONOCYTE # 0.2 10^3/ul (0.3-0.9); MONOCYTES % 2.9 % (0.0-11.0); NEUTROPHIL # 6.3 10^3/ul (1.6-7.5); NEUTROPHILS % 83.3 % (39.0-77.0); PLATELET COUNT 249 10^3/UL (140-415); RED BLOOD COUNT 3.56 10^6/ul (4.20-5.40); RED CELL DISTRIBUTION WIDTH 18.6 % (11.5-14.5); WHITE BLOOD COUNT 7.6 10^3/ul (4.8-10.8)
[2017-05-05 06:48] LABS: CREATININE 0.57 mg/dl (0.44-1.00); POTASSIUM 3.9 mmol/L (3.5-5.1)
[2017-05-05 07:57] VITALS: BP 123/69; RESP 18
[2017-05-05] MEDS: LINEZOLID 600 MG/D5W (PMX) 300 ML IVPB SCH ×2 (08:55→21:33)
[2017-05-05] MEDS: SALMETEROL/FLUTICASONE 100/50 INHA INH SCH (09:00)
[2017-05-05] MEDS: HEPARIN 5,000 UNIT/0.5 ML VIAL SC SCH ×2 (09:06→21:44)
[2017-05-05] MEDS: IBUPROFEN 800 MG TAB PO PRN (09:35)
--- NOTE | 2017-05-05 09:58 | PN ---
Date/Time of Note Date/Time of Note DATE: 05/05/17 TIME: 09:54 Assessment/Plan VTE Prophylaxis VTE Prophylaxis Intervention: heparin Lines/Catheters IV Catheter Type (from Nrs): Peripheral IV Urinary Cath still in place: Yes Reason Cath still needed: urinary retention Assessment/Plan Chief Complaint/Hosp Course Assessment/Plan: 59-year-old morbidly obese female with a history of COPD, polysubstance abuse, right femoral DVT and chronic bilateral lower extremity cellulitis/ulcer who presented to the ER complaining of worsening bilateral lower extremity cellulitis/ulcer. 1. Bilateral lower extremity cellulitis/open ulceration-still present -Continue IV antibiotics per ID recommendations -Follow-up wound culture results -Follow-up wound care consult recommended 2. COPD exacerbation-slowly improving -Continue supplemental oxygen, bronchodilators inhaled and IV steroids 3. History of right femoral DVT- Patient has previously been on Xarelto, but Doppler ultrasound was negative for DVT -Monitor 4. Iron deficiency anemia -status post PRBC transfusion yesterday, but patient refusing FOBT -Monitor H&H and transfuse as needed, will also give dose of IV iron today as well 5. Morbid obesity with BMI of 41 -Weight reduction advised 6. Elevated blood sugars: Follow-up A1c, continue sliding scale insulin and Lantus for now. Problems: Subjective 24 Hr Interval Summary Free Text/Dictation Patient received blood transfusion yesterday, but refused IV steroids. Exam/Review of Systems Vital Signs Vitals Vital Signs Date Time Temp Pulse Resp B/P Pulse Ox O2 Delivery O2 Flow Rate FiO2 05/05/17 07:57 98.3 75 18 123/69 94 05/05/17 05:58 21 05/04/17 05:45 2.0 05/03/17 23:10 Room Air Intake and Output 05/04/17 05/04/17 05/05/17 14:59 22:59 06:59 Intake Total 50 ml 3670 ml 1270 ml Output Total 4600 ml 440 ml Balance 50 ml -930 ml 830 ml Exam Constitutional: other (Mild distress when talking due to shortness of breath) Head: atraumatic, normocephalic Eyes: EOMI, PERRL Respiratory: Less wheezing Cardiovascular: regular rate and rhythm Gastrointestinal: non-tender, soft Extremities: other (Significant erythema with swelling of her bilateral shins. There is also some drainage from both legs.) Results Result Diagram: 05/05/17 0539 05/05/17 0538 Results 24 hrs Laboratory Tests Test 05/05/17 05:38 05/05/17 05:39 05/05/17 05:42 Sodium Level 135 Potassium Level 3.9 Chloride Level 102 Carbon Dioxide Level 29 Anion Gap 8 Blood Urea Nitrogen 11 Creatinine 0.57 Glucose Level 260 #H Calcium Level 9.0 White Blood Count 7.6 Red Blood Count 3.56 L Hemoglobin 8.4 L Hematocrit 28.2 L Mean Corpuscular Volume 79.2 L Mean Corpuscular Hemoglobin 23.6 L Mean Corpuscular Hemoglobin Concent 29.8 L Red Cell Distribution Width 18.6 H Platelet Count 249 Mean Platelet Volume 10.0 Neutrophils % 83.3 H Lymphocytes % 12.7 L Monocytes % 2.9 Eosinophils % 0.0 Basophils % 0.1 Nucleated Red Blood Cells % 0.0 Neutrophils # 6.3 Lymphocytes # 1.0 Monocytes # 0.2 L Eosinophils # 0.0 Basophils # 0.0 Nucleated Red Blood Cells # 0.0 Lab Scanned Report BLOOD TRANSFUSION Medications Medications Current Medications Acetaminophen (Tylenol Tab) 650 mg Q6H PRN PO PAIN AND OR ELEVATED TEMP Last administered on 05/04/17 22:23; Admin Dose 650 MG; Start 05/04/17 at 00:00 Ondansetron HCl (Zofran Inj) 4 mg Q6H PRN IV NAUSEA AND/OR VOMITING; Start at 00:00 Heparin Sodium (Porcine) (Heparin (5000 Units/0.5 ml)) 5,000 unit BID SC Last administered on 05/05/17 09:06; Admin Dose 5,000 UNIT; Start 05/04/17 at 09:00 Furosemide (Lasix) 40 mg DAILY@06 PO Last administered on 05/05/17 05:47; Admin Dose 40 MG; Start 05/04/17 at 06:00 Ibuprofen (Motrin) 800 mg Q12H PRN PO PAIN Last administered on 05/05/17 09:35 ; Admin Dose 800 MG; Start 05/04/17 at 00:00 Salmeterol Xinafoate/ Fluticasone (Advair 100/50 Diskus) 1 inh BID INH ; Start 05/04/17 at 09:00 Acetaminophen/ Hydrocodone Bitart 1 tab 1 tab Q6H PRN PO PAIN Last administered on 05/05/17 06:02; Admin Dose 1 TAB; Start 05/04/17 at 05:30 Linezolid (Zyvox 600mg/D5W (Pmx)) 300 ml @ 300 mls/hr Q12 IVPB Last administered on 05/05/17 08:55; Admin Dose 300 MLS/HR; Start 05/04/17 at 13:30 Methylprednisolone Sodium Succinate (Solu-Medrol) 80 mg Q6 IV Last administered on 05/05/17 05:48; Admin Dose 80 MG; Start 05/04/17 at 12:30 Morphine Sulfate (morphine) 2 mg Q4H PRN IV PAIN; Start 05/04/17 at 16:00 Zolpidem Tartrate (Ambien) 2.5 mg HS PRN PO INSOMNIA; Start 05/04/17 at 12:30 Levofloxacin (Levaquin) 750 mg DAILY@06 PO Last administered on 05/05/17 05:47 ; Admin Dose 750 MG; Start 05/05/17 at 06:00 Diagnostic Test (Pha) (Accu-Chek) 1 ea 02 XX ; Start 05/06/17 at 02:00 Insulin Glargine (Lantus) 18 unit DAILY@08 SC ; Start 05/06/17 at 08:00 Diagnostic Test (Pha) (Accu-Chek) 1 ea 02 XX ; Start 05/06/17 at 02:00 Miscellaneous Information 1 ea NOTE XX ; Start 05/05/17 at 10:00 Glucose (Glutose) 15 gm Q15M PRN PO DECREASED GLUCOSE; Start 05/05/17 at 10:00 Glucose (Glutose) 22.5 gm Q15M PRN PO DECREASED GLUCOSE; Start 05/05/17 at 10: 00 Dextrose (D50w Syringe) 25 ml Q15M PRN IV DECREASED GLUCOSE; Start 05/05/17 at 10:00 Dextrose (D50w Syringe) 50 ml Q15M PRN IV DECREASED GLUCOSE; Start 05/05/17 at 10:00 Glucagon (Glucagen) 1 mg Q15M PRN IM DECREASED GLUCOSE; Start 05/05/17 at 10:00 Glucose (Glutose) 15 gm Q15M PRN BUCCAL DECREASED GLUCOSE; Start 05/05/17 at 10 :00 DOUGLAS JIMÉNEZ May 05, 2017 09:58
[2017-05-05] MEDS ORDERED: GLUCOSE GEL 15 GRAM TUBE BUCCAL PRN (10:00)
[2017-05-05] MEDS ORDERED: GLUCOSE GEL 15 GRAM TUBE PO PRN ×2 (10:00)
[2017-05-05] MEDS ORDERED: DEXTROSE 50% 50 ML SYRINGE IV PRN ×2 (10:00)
[2017-05-05] MEDS ORDERED: GLUCAGON 1 MG INJ IM PRN (10:00)
[2017-05-05] MEDS ORDERED: SOD FERRIC GLUC COMPLX 125 MG in SOD CHLORIDE 0.9% 100 ML IVPB ONE (11:00)
[2017-05-05] MEDS ORDERED: ADVAIR INH SCH (12:00)
[2017-05-05] MEDS: INSULIN ASPART [NOVOLOG] 3 ML PEN SC SCH ×3 (12:22→21:00)
[2017-05-05 14:00] VITALS: BP 132/74; RESP 18
[2017-05-05] MEDS ORDERED: METHYLPREDNISOLONE 125 MG INJ IV SCH (14:00)
[2017-05-05] MEDS: ACETAMINOPHEN 325 MG TAB PO PRN (17:44)
--- NOTE | 2017-05-05 18:21 | RADRPT ---
PROCEDURE: XR Left Foot. CLINICAL INDICATION: Left foot pain. TECHNIQUE: Two views. Frontal and lateral. COMPARISON: None. FINDINGS: There is no acute fracture or dislocation. There is an old healed fracture of the distal neck of the fifth metatarsal with mild deformity. There is mild deformity of the distal neck of the second meta tarsal may be due to old fracture as well. The soft tissues are normal. The articular surfaces are intact. There is a plantar calcaneal spur. There is no lytic or blastic lesion. There is no radiopaque foreign body. IMPRESSION: 1. Old healed fracture of the distal neck of the fifth metatarsal. 2. Mild deformity of the distal neck of the second metatarsal which may also be due to old fracture . 3. Plantar calcaneal spur. 4. No acute fracture. 5. Otherwise unremarkable images of the left foot. RPTAT: QQ .Lamont Medina MD, Date Time Electronically viewed and signed by .Lamont Medina MD, on 05/05/2017 18:21 .R/
[2017-05-05 19:58] VITALS: BP 121/72; RESP 18
--- NOTE | 2017-05-05 20:07 | CONS ---
Date/Time of Note Date/Time of Note DATE: 05/05/17 TIME: 20:03 Assessment/Plan Assessment/Plan Chief Complaint/Hosp Course ID PROGRESS NOTE: CURRENT ABX: Zyvox + Levaquin * A/A/O, pleasant, polite, cooperative, NAD, no fever today * s/p Fevers, leukocytosis resolving. Pt is resting comfortably supplemental O2 via NC * (+)MRSA Nares * BLEXT acute cellulitis chronic venous stasis edema -- open wound cx in process * GRAM STAIN Final EPITHELIAL CELLS RARE GRAM POS COCCI IN PAIRS RARE GRAM NEGATIVE RODS RARE * 05/04/17 BLEXT US: .No sonographic evidence for deep venous thrombosis. PHYSICAL EXAMINATION: GENERAL: Well-developed, obese, middle-aged woman, who is alert, in no distress. HEENT: Unremarkable NECK: Supple, trachea midline. CHEST: Chest rise is symmetrical. Breath sounds diminished to the bases. HEART: S1, S2. ABDOMEN: Soft, bowel sounds present. EXTREMITIES: With bilateral lower extremity erythema, edema and chronic wounds. ID ASSESSMENT: 51 yo morbid obese F w/BMI > 40 admit with: 1. SIRS w/fevers, tachycardia due to #1 & #2 2. Acute on chronic bilateral lower extremity cellulitis superimposed on acute/ chronic lymphedema * Open venous ulcerations * 05/04/17 BLEXT US: .No sonographic evidence for deep venous thrombosis. 3. Hx of prior BLEXT DVT => Chronic Hypercoagulable state = likely related to obesity, metabolic syndrome, immobility. * Hx LLE DVT in Mar 2015, and apparently has been on/off Xarelto since early March 2015. * Hx of RLEXT = Right femoral vein DVT October 2015 4. Acute COPD exacerbation * Chronic obstructive pulmonary disease/ EDUARDO/suspect obesity hypoventilation syndrome 5. History of noncompliance. 6. History of polysubstance abuse. 7. Iron deficiency anemia 8. Hx of Right Total Hip Replacement 1996 (+) MRSA Nares = Bactroban ordered ABX ALLERGY: SULFA per prior notes ? CURRENT ABX: Zyvox + Levaquin ID RECOMMENDATIONS/PLAN: 1. Continue current ABX 2. Add Bactroban to nares 3. F/u wound cx final pending: * GRAM STAIN Final EPITHELIAL CELLS RARE GRAM POS COCCI IN PAIRS RARE GRAM NEGATIVE RODS RARE . . Problems: Consultation Date/Type/Reason Admit Date/Time May 03, 2017 at 21:34 Exam/Review of Systems Vital Signs Vitals Vital Signs Date Time Temp Pulse Resp B/P Pulse Ox O2 Delivery O2 Flow Rate FiO2 05/05/17 19:58 98.4 75 18 121/72 93 05/05/17 05:58 21 05/04/17 05:45 2.0 05/03/17 23:10 Room Air Intake and Output 05/04/17 05/04/17 05/05/17 15:00 23:00 07:00 Intake Total 50 ml 3670 ml 1270 ml Output Total 4600 ml 440 ml Balance 50 ml -930 ml 830 ml Results Result Diagram: 05/05/17 0539 05/05/17 0538 Results 24 hrs Laboratory Tests Test 05/05/17 05:38 05/05/17 05:39 05/05/17 05:42 05/05/17 12:18 Sodium Level 135 Potassium Level 3.9 Chloride Level 102 Carbon Dioxide Level 29 Anion Gap 8 Blood Urea Nitrogen 11 Creatinine 0.57 Glucose Level 260 #H Calcium Level 9.0 White Blood Count 7.6 Red Blood Count 3.56 L Hemoglobin 8.4 L Hematocrit 28.2 L Mean Corpuscular Volume 79.2 L Mean Corpuscular Hemoglobin 23.6 L Mean Corpuscular Hemoglobin Concent 29.8 L Red Cell Distribution Width 18.6 H Platelet Count 249 Mean Platelet Volume 10.0 Neutrophils % 83.3 H Lymphocytes % 12.7 L Monocytes % 2.9 Eosinophils % 0.0 Basophils % 0.1 Nucleated Red Blood Cells % 0.0 Neutrophils # 6.3 Lymphocytes # 1.0 Monocytes # 0.2 L Eosinophils # 0.0 Basophils # 0.0 Nucleated Red Blood Cells # 0.0 Hemoglobin A1c 5.5 Lab Scanned Report BLOOD TRANSFUSION Bedside Glucose 203 Test 05/05/17 17:12 Bedside Glucose 205 Medications Medications Current Medications Acetaminophen (Tylenol Tab) 650 mg Q6H PRN PO PAIN AND OR ELEVATED TEMP Last administered on 05/05/17t 17:44; Admin Dose 650 MG; Start 05/04/17 at 00:00 Ondansetron HCl (Zofran Inj) 4 mg Q6H PRN IV NAUSEA AND/OR VOMITING; Start at 00:00 Heparin Sodium (Porcine) (Heparin (5000 Units/0.5 ml)) 5,000 unit BID SC Last administered on 05/05/17 09:06; Admin Dose 5,000 UNIT; Start 05/04/17 at 09:00 Furosemide (Lasix) 40 mg DAILY@06 PO Last administered on 05/05/17 05:47; Admin Dose 40 MG; Start 05/04/17 at 06:00 Ibuprofen (Motrin) 800 mg Q12H PRN PO PAIN Last administered on 05/05/17 09:35 ; Admin Dose 800 MG; Start 05/04/17 at 00:00 Acetaminophen/ Hydrocodone Bitart 1 tab 1 tab Q6H PRN PO PAIN Last administered on 05/05/17 13:41; Admin Dose 1 TAB; Start 05/04/17 at 05:30 Linezolid (Zyvox 600mg/D5W (Pmx)) 300 ml @ 300 mls/hr Q12 IVPB Last administered on 05/05/17 08:55; Admin Dose 300 MLS/HR; Start 05/04/17 at 13:30 Morphine Sulfate (morphine) 2 mg Q4H PRN IV PAIN; Start 05/04/17 at 16:00 Zolpidem Tartrate (Ambien) 2.5 mg HS PRN PO INSOMNIA; Start 05/04/17 at 12:30 Levofloxacin (Levaquin) 750 mg DAILY@06 PO Last administered on 05/05/17 05:47 ; Admin Dose 750 MG; Start 05/05/17 at 06:00 Diagnostic Test (Pha) (Accu-Chek) 1 ea 02 XX ; Start 05/06/17 at 02:00 Insulin Glargine (Lantus) 18 unit DAILY@08 SC ; Start 05/06/17 at 08:00 Diagnostic Test (Pha) (Accu-Chek) 1 ea 02 XX ; Start 05/06/17 at 02:00 Miscellaneous Information 1 ea NOTE XX ; Start 05/05/17 at 10:00 Glucose (Glutose) 15 gm Q15M PRN PO DECREASED GLUCOSE; Start 05/05/17 at 10:00 Glucose (Glutose) 22.5 gm Q15M PRN PO DECREASED GLUCOSE; Start 05/05/17 at 10: 00 Dextrose (D50w Syringe) 25 ml Q15M PRN IV DECREASED GLUCOSE; Start 05/05/17 at 10:00 Dextrose (D50w Syringe) 50 ml Q15M PRN IV DECREASED GLUCOSE; Start 05/05/17 at 10:00 Glucagon (Glucagen) 1 mg Q15M PRN IM DECREASED GLUCOSE; Start 05/05/17 at 10:00 Glucose (Glutose) 15 gm Q15M PRN BUCCAL DECREASED GLUCOSE; Start 05/05/17 at 10 :00 Methylprednisolone Sodium Succinate (Solu-Medrol) 60 mg Q8 IV ; Start 05/05/17 at 14:00; Status Future Hold Ranitidine HCl (Zantac) 150 mg HS PO ; Start 05/05/17 at 21:00 Mupirocin (Bactroban) 1 applic BID TOP ; Start 05/05/17 at 21:00 Miscellaneous Information (* Miscellaneous Pharmacy Order) ADVAIR AEROSAL INHAILER... ONCE XX ; Start 05/05/17 at 10:30 Guaifenesin (Robitussin Liquid Cup) 200 mg Q4H PRN PO COUGH; Start 05/05/17 at 11:00 Patient Own Medication 1 ea BID INH ; Start 05/05/17 at 21:00 MICHELLE HILL NP May 05, 2017 20:07
[2017-05-05] MEDS: RANITIDINE 150 MG TAB PO SCH (21:33)
[2017-05-05] MEDS: MUPIROCIN 2% 22 GM OINT TOP SCH (21:34)
[2017-05-05] MEDS: GUAIFENESIN 20 MG/ML 5ML CUP PO PRN (21:56)
[2017-05-05] MEDS: ADVAIR INH SCH (22:57)
[2017-05-06] MEDS: ALBUTEROL/IPRATROPIUM (NEB) 3 ML AMP HHN SCH ×6 (00:19→20:28)
[2017-05-06 01:52] VITALS: BP 119/68; RESP 18
[2017-05-06] MEDS: ACCU-CHEK XX SCH ×2 (02:00)
[2017-05-06] MEDS ORDERED: ACCU-CHEK XX SCH ×2 (02:00)
[2017-05-06] MEDS: ZOLPIDEM 5 MG TAB PO PRN (02:08)
[2017-05-06] MEDS: IBUPROFEN 800 MG TAB PO PRN ×2 (02:19→17:46)
[2017-05-06] MEDS: FUROSEMIDE 40 MG TAB PO SCH (06:45)
[2017-05-06] MEDS: LEVOFLOXACIN 750 MG TABLET PO SCH (06:45)
[2017-05-06 07:23] VITALS: BP 124/79; RESP 18
[2017-05-06] MEDS: INSULIN GLARGINE [LANtus] 3 ML PEN SC SCH (08:00)
[2017-05-06] MEDS: INSULIN ASPART [NOVOLOG] 3 ML PEN SC SCH ×4 (08:10→20:59)
[2017-05-06] MEDS: ADVAIR INH SCH ×2 (08:36→20:47)
[2017-05-06] MEDS: LINEZOLID 600 MG/D5W (PMX) 300 ML IVPB SCH ×2 (08:37→20:46)
[2017-05-06] MEDS: MUPIROCIN 2% 22 GM OINT TOP SCH ×2 (08:38→21:05)
[2017-05-06] MEDS: HEPARIN 5,000 UNIT/0.5 ML VIAL SC SCH ×2 (08:54→20:58)
[2017-05-06 09:58] LABS: BASOPHILS % 0.1 % (0.0-2.0); EOSINOPHILS % 0.2 % (0.0-7.0); HEMATOCRIT 27.9 % (37.0-47.0); HEMOGLOBIN 8.2 g/dl (12.0-16.0); LYMPHOCYTES # 1.9 10^3/ul (0.8-2.9); LYMPHOCYTES % 16.7 % (15.0-51.0); MEAN CORPUSCULAR HEMOGLOBIN 23.4 pg (29.0-33.0); MEAN CORPUSCULAR HGB CONC 29.4 g/dl (32.0-37.0); MEAN CORPUSCULAR VOLUME 79.5 fl (82.0-101.0); MEAN PLATELET VOLUME 10.1 fl (7.4-10.4); MONOCYTE # 0.5 10^3/ul (0.3-0.9); MONOCYTES % 4.1 % (0.0-11.0); NEUTROPHIL # 8.8 10^3/ul (1.6-7.5); NEUTROPHILS % 77.6 % (39.0-77.0); NUCLEATED RED BLOOD CELLS% 0.3 /100WBC (0.0-0.0); PLATELET COUNT 244 10^3/UL (140-415); RED BLOOD COUNT 3.51 10^6/ul (4.20-5.40); RED CELL DISTRIBUTION WIDTH 19.1 % (11.5-14.5); WHITE BLOOD COUNT 11.4 10^3/ul (4.8-10.8)
[2017-05-06 10:15] LABS: CALCIUM 8.8 mg/dl (8.4-10.2); CREATININE 0.63 mg/dl (0.44-1.00)
[2017-05-06] MEDS: HYDROCODONE/APAP (10/325) TAB PO PRN ×2 (13:11→20:44)
[2017-05-06 15:02] VITALS: BP 110/60; RESP 18
--- NOTE | 2017-05-06 15:20 | PN ---
Date/Time of Note Date/Time of Note DATE: 05/06/17 TIME: 15:16 Assessment/Plan VTE Prophylaxis VTE Prophylaxis Intervention: other Lines/Catheters IV Catheter Type (from Nrs): Saline Lock Urinary Cath still in place: Yes Reason Cath still needed: other (indicate) Assessment/Plan Chief Complaint/Hosp Course Assessment/Plan: 59-year-old morbidly obese female with a history of COPD, polysubstance abuse, right femoral DVT and chronic bilateral lower extremity cellulitis/ulcer who presented to the ER complaining of worsening bilateral lower extremity cellulitis/ulcer. 1. Bilateral lower extremity cellulitis/open ulceration-still present -Continue IV antibiotics per ID recommendations -Podiatry has been consulted -Follow-up wound culture results -Follow-up wound care consult recommended 2. COPD exacerbation-slowly improving -Continue supplemental oxygen, bronchodilators inhaled and IV steroids 3. History of right femoral DVT- Patient has previously been on Xarelto, but Doppler ultrasound was negative for DVT -Monitor 4. Iron deficiency anemia -status post PRBC transfusion yesterday, but patient refusing FOBT -Monitor H&H and transfuse as needed, will also give dose of IV iron today as well 5. Morbid obesity with BMI of 41 -Weight reduction advised 6. Elevated blood sugars: HbA1c normal at 5.3, continue sliding scale insulin and Lantus for now. 7. Leukocytosis, likely secondary to steroid versus bilateral lower extremity infection ulcer . patient is afebrile continue IV antibiotics Problems: Subjective 24 Hr Interval Summary Free Text/Dictation Patient continues to complain of having bilateral lower extremity discomfort and pain Denies of any chest pain or shortness of breath Denies of any abdominal pain Denies of any nausea, vomiting or diarrhea Exam/Review of Systems Vital Signs Vitals Vital Signs Date Time Temp Pulse Resp B/P Pulse Ox O2 Delivery O2 Flow Rate FiO2 05/06/17 15:02 98.5 77 18 110/60 94 05/06/17 14:12 21 05/04/17 05:45 2.0 05/03/17 23:10 Room Air Intake and Output 05/05/17 05/05/17 05/06/17 15:00 23:00 07:00 Intake Total 410 ml 2730 ml 500 ml Output Total 2250 ml 1800 ml Balance 410 ml 480 ml -1300 ml Exam General: The patient is well-developed, Not in acute distress. Body habitus is morbidly obese with BMI of 40.9 HEENT: Atraumatic, normocephalic. The pupils are equal and round . Neck: Supple with full range of motion. Chest: Normal expansion of the thorax during inspiration Lungs: Clear to auscultation bilaterally Heart: Normal S1-S2, Regular rhythm and rate. Abdomen: Abdominal contour is morbidly obese, soft , nontender, nondistended , bowel sounds are present. Extremities: Bilateral liver lower extremity ulcer and edema , no cyanosis, deformity of the left foot Neurologic: Normal mental status,The patient is awake, alert and oriented . Results Result Diagram: 05/06/17 0911 05/06/17 0911 Results 24 hrs Laboratory Tests Test 05/05/17 17:12 05/05/17 21:40 05/06/17 02:24 05/06/17 08:07 Bedside Glucose 205 193 159 115 Test 05/06/17 09:11 05/06/17 12:13 White Blood Count 11.4 #H Red Blood Count 3.51 L Hemoglobin 8.2 L Hematocrit 27.9 L Mean Corpuscular Volume 79.5 L Mean Corpuscular Hemoglobin 23.4 L Mean Corpuscular Hemoglobin Concent 29.4 L Red Cell Distribution Width 19.1 H Platelet Count 244 Mean Platelet Volume 10.1 Neutrophils % 77.6 H Lymphocytes % 16.7 Monocytes % 4.1 Eosinophils % 0.2 Basophils % 0.1 Nucleated Red Blood Cells % 0.3 H Neutrophils # 8.8 H Lymphocytes # 1.9 Monocytes # 0.5 Eosinophils # 0.0 Basophils # 0.0 Nucleated Red Blood Cells # 0.0 Sodium Level 137 Potassium Level 4.0 Chloride Level 100 Carbon Dioxide Level 29 Anion Gap 12 Blood Urea Nitrogen 17 Creatinine 0.63 Glucose Level 204 Calcium Level 8.8 Bedside Glucose 163 Medications Medications Current Medications Acetaminophen (Tylenol Tab) 650 mg Q6H PRN PO PAIN AND OR ELEVATED TEMP Last administered on 05/05/17t 17:44; Admin Dose 650 MG; Start 05/04/17 at 00:00 Ondansetron HCl (Zofran Inj) 4 mg Q6H PRN IV NAUSEA AND/OR VOMITING; Start at 00:00 Heparin Sodium (Porcine) (Heparin (5000 Units/0.5 ml)) 5,000 unit BID SC Last administered on 05/06/17 08:54; Admin Dose 5,000 UNIT; Start 05/04/17 at 09:00 Furosemide (Lasix) 40 mg DAILY@06 PO Last administered on 05/06/17 06:45; Admin Dose 40 MG; Start 05/04/17 at 06:00 Ibuprofen (Motrin) 800 mg Q12H PRN PO PAIN Last administered on 05/06/17 02:19 ; Admin Dose 800 MG; Start 05/04/17 at 00:00 Acetaminophen/ Hydrocodone Bitart 1 tab 1 tab Q6H PRN PO PAIN Last administered on 05/06/17 13:11; Admin Dose 1 TAB; Start 05/04/17 at 05:30 Linezolid (Zyvox 600mg/D5W (Pmx)) 300 ml @ 300 mls/hr Q12 IVPB Last administered on 05/06/17 08:37; Admin Dose 300 MLS/HR; Start 05/04/17 at 13:30 Morphine Sulfate (morphine) 2 mg Q4H PRN IV PAIN; Start 05/04/17 at 16:00 Zolpidem Tartrate (Ambien) 2.5 mg HS PRN PO INSOMNIA Last administered on 02:08; Admin Dose 2.5 MG; Start 05/04/17 at 12:30 Levofloxacin (Levaquin) 750 mg DAILY@06 PO Last administered on 05/06/17 06:45 ; Admin Dose 750 MG; Start 05/05/17 at 06:00 Diagnostic Test (Pha) (Accu-Chek) 1 ea 02 XX ; Start 05/06/17 at 02:00 Insulin Glargine (Lantus) 18 unit DAILY@08 SC ; Start 05/06/17 at 08:00 Diagnostic Test (Pha) (Accu-Chek) 1 ea 02 XX ; Start 05/06/17 at 02:00 Miscellaneous Information 1 ea NOTE XX ; Start 05/05/17 at 10:00 Glucose (Glutose) 15 gm Q15M PRN PO DECREASED GLUCOSE; Start 05/05/17 at 10:00 Glucose (Glutose) 22.5 gm Q15M PRN PO DECREASED GLUCOSE; Start 05/05/17 at 10: 00 Dextrose (D50w Syringe) 25 ml Q15M PRN IV DECREASED GLUCOSE; Start 05/05/17 at 10:00 Dextrose (D50w Syringe) 50 ml Q15M PRN IV DECREASED GLUCOSE; Start 05/05/17 at 10:00 Glucagon (Glucagen) 1 mg Q15M PRN IM DECREASED GLUCOSE; Start 05/05/17 at 10:00 Glucose (Glutose) 15 gm Q15M PRN BUCCAL DECREASED GLUCOSE; Start 05/05/17 at 10 :00 Methylprednisolone Sodium Succinate (Solu-Medrol) 60 mg Q8 IV ; Start 05/05/17 at 14:00; Status Future Hold Ranitidine HCl (Zantac) 150 mg HS PO Last administered on 05/05/17 21:33; Admin Dose 150 MG; Start 05/05/17 at 21:00 Mupirocin (Bactroban) 1 applic BID TOP Last administered on 05/06/17 08:38; Admin Dose 1 APPLIC; Start 05/05/17 at 21:00 Miscellaneous Information (* Miscellaneous Pharmacy Order) ADVAIR AEROSAL INHAILER... ONCE XX ; Start 05/05/17 at 10:30 Guaifenesin (Robitussin Liquid Cup) 200 mg Q4H PRN PO COUGH Last administered on 05/05/17 21:56; Admin Dose 200 MG; Start 05/05/17 at 11:00 Patient Own Medication 1 ea BID INH Last administered on 05/06/17 08:36; Admin Dose 1 EA; Start 05/05/17 at 21:00 AMAN ARTEAGA MD May 06, 2017 15:20
--- NOTE | 2017-05-06 16:35 | PN ---
DATE: 05/06/2017 SUBJECTIVE DATA: The patient is sleeping, looks comfortable. No fevers overnight. LABORATORY AND DIAGNOSTIC DATA: WBC 11.4, platelets 244, neutrophils 77.6, BUN 17, and creatinine 0.63. MICROBIOLOGY: Blood and urine culture negative. Nares swab growing MRSA. Left lower extremity wound culture growing Providencia Staph aureus Enterococcus species gram-negative rods. Pending final sensitivities. ALLERGIES: NONE. ANTIMICROBIALS: The patient is on Levaquin and Zyvox. PHYSICAL EXAMINATION: GENERAL: This is obese, well developed, elderly woman, who is in no distress. HEENT: Head atraumatic, normocephalic. Sclerae anicteric. Buccal mucosa dry. NECK: Supple. CHEST: Chest rise symmetrical. Breath sounds diminished at the bases. HEART: S1, S2. ABDOMEN: Soft, bowel sounds present. EXTREMITIES: With bilateral lower extremity dressing intact. ASSESSMENT: 1. Bilateral lower extremities, acute on chronic cellulitis. 2. Methicillin-resistant Staphylococcus aureus nares colonization. 3. History of bilateral lower extremities deep venous trombosis (DVT). 4. Chronic obstructive pulmonary disease (COPD). 5. History of polysubstance abuse, with noncompliance. 6. History of right total hip replacement in 1996. 7. Questionable allergy to sulfa as per previous admission. PLAN: 1. The patient remains stable. 2. Continue present care. 3. Antibiotics, await for final cultures and sensitivities. Dictated By: Lakisha Sharpe NP /bruce/karla /Document#: [id number]
[2017-05-06] MEDS: GUAIFENESIN 20 MG/ML 5ML CUP PO PRN (17:21)
[2017-05-06 20:06] VITALS: BP 124/67; RESP 20
[2017-05-06] MEDS: RANITIDINE 150 MG TAB PO SCH (20:44)
--- NOTE | 2017-05-06 23:54 | CONS ---
Date/Time of Note Date/Time of Note DATE: 05/06/17 TIME: 23:54 Assessment/Plan Assessment/Plan Problems: (1) Sepsis Status: Acute (2) Cellulitis and abscess of leg Status: Acute (3) Pain of left leg Status: Acute (4) Foot pain Status: Acute (5) Bilateral leg pain Status: Acute (6) Cellulitis Status: Acute Qualifiers: Qualified Code: L03.119 - Cellulitis of lower extremity, unspecified laterality Additional Assessment/Plan Continue every other day dressing changes with compression. Wound care nurse to apply compression bandages and change every other day. No surgery is recommended for the left foot at this time. Patient will be followed in-house. Thank you again for involving me in the care of this patient. If you have any questions regarding this case, please feel free to contact me at pager: or reach me at mobile: [phone]. Consultation Date/Type/Reason Admit Date/Time May 03, 2017 at 21:34 Date of Consultation: May 06, 2017 Hx of Present Illness Thank you very much for involving me in the care of this patient. As you know this is a 59-year-old morbidly obese female with multiple medical problems including polysubstance abuse, right femoral DVT, chronic bilateral lower extremity cellulitis and ulceration, COPD who presented to the ER complaining of worsening lower extremity cellulitis and ulceration. She also complains of pain in the left foot. She reports history of trauma to the left foot many years ago. Patient apparently has been hospitalized for the same problem at [facility]. About 2 weeks ago. I was consulted for evaluation of her lower extremity problems. She reports that she was discharged from [facility] and was placed on Zyvox and clindamycin and she has not been able to fill the prescription secondary to insurance problems. Today patient reports no fever and chills and denies chest pain or shortness of breath. Constitutional: improved, no complaints Eyes: no complaints ENT: no complaints Respiratory: shortness of breath Past Medical History As per history of present illness. Past Surgical History As per history of present illness. Social History As per history of present illness. Smoking Status: Current every day smoker Exam/Review of Systems Vital Signs Vitals Vital Signs Date Time Temp Pulse Resp B/P Pulse Ox O2 Delivery O2 Flow Rate FiO2 05/06/17 20:29 71 18 96 21 05/06/17 20:06 98.2 124/67 05/04/17 05:45 2.0 05/03/17 23:10 Room Air Intake and Output 05/05/17 05/05/17 05/06/17 15:00 23:00 07:00 Intake Total 410 ml 2730 ml 500 ml Output Total 2250 ml 1800 ml Balance 410 ml 480 ml -1300 ml Exam Patient is laying supine in bed in no acute distress. Bandages are present on bilateral lower legs. Bandages were removed. Patient has extensive cellulitis noted bilateral lower extremity with multiple ulcerations in various stages of healing. Patient also has tenderness palpation of the left foot with severe forefoot deformities including hammertoes and bunions. There is no active open wound present and no purulent drainage or bleeding. Labs and imaging reviewed. Findings: 1. Old healed fracture of the distal neck of the fifth metatarsal. 2. Mild deformity of the distal neck of the second metatarsal which may also be due to old fracture. 3. Plantar calcaneal spur. 4. No acute fracture. 5. Otherwise unremarkable images of the left foot. Results Result Diagram: 05/06/17 0911 05/06/17 0911 Results 24 hrs Laboratory Tests Test 05/06/17 02:24 05/06/17 08:07 05/06/17 09:11 05/06/17 12:13 Bedside Glucose 159 115 163 White Blood Count 11.4 #H Red Blood Count 3.51 L Hemoglobin 8.2 L Hematocrit 27.9 L Mean Corpuscular Volume 79.5 L Mean Corpuscular Hemoglobin 23.4 L Mean Corpuscular Hemoglobin Concent 29.4 L Red Cell Distribution Width 19.1 H Platelet Count 244 Mean Platelet Volume 10.1 Neutrophils % 77.6 H Lymphocytes % 16.7 Monocytes % 4.1 Eosinophils % 0.2 Basophils % 0.1 Nucleated Red Blood Cells % 0.3 H Neutrophils # 8.8 H Lymphocytes # 1.9 Monocytes # 0.5 Eosinophils # 0.0 Basophils # 0.0 Nucleated Red Blood Cells # 0.0 Sodium Level 137 Potassium Level 4.0 Chloride Level 100 Carbon Dioxide Level 29 Anion Gap 12 Blood Urea Nitrogen 17 Creatinine 0.63 Glucose Level 204 Calcium Level 8.8 Test 05/06/17 17:19 05/06/17 20:43 Bedside Glucose 181 131 Medications Medications Current Medications Acetaminophen (Tylenol Tab) 650 mg Q6H PRN PO PAIN AND OR ELEVATED TEMP Last administered on 05/05/17 17:44; Admin Dose 650 MG; Start 05/04/17 at 00:00 Ondansetron HCl (Zofran Inj) 4 mg Q6H PRN IV NAUSEA AND/OR VOMITING; Start at 00:00 Heparin Sodium (Porcine) (Heparin (5000 Units/0.5 ml)) 5,000 unit BID SC Last administered on 05/06/17 20:58; Admin Dose 5,000 UNIT; Start 05/04/17 at 09:00 Furosemide (Lasix) 40 mg DAILY@06 PO Last administered on 05/06/17 06:45; Admin Dose 40 MG; Start 05/04/17 at 06:00 Ibuprofen (Motrin) 800 mg Q12H PRN PO PAIN Last administered on 05/06/17 17:46 ; Admin Dose 800 MG; Start 05/04/17 at 00:00 Acetaminophen/ Hydrocodone Bitart 1 tab 1 tab Q6H PRN PO PAIN Last administered on 05/06/17 20:44; Admin Dose 1 TAB; Start 05/04/17 at 05:30 Linezolid (Zyvox 600mg/D5W (Pmx)) 300 ml @ 300 mls/hr Q12 IVPB Last administered on 05/06/17 20:46; Admin Dose 300 MLS/HR; Start 05/04/17 at 13:30 Morphine Sulfate (morphine) 2 mg Q4H PRN IV PAIN; Start 05/04/17 at 16:00 Zolpidem Tartrate (Ambien) 2.5 mg HS PRN PO INSOMNIA Last administered on 02:08; Admin Dose 2.5 MG; Start 05/04/17 at 12:30 Levofloxacin (Levaquin) 750 mg DAILY@06 PO Last administered on 05/06/17 06:45 ; Admin Dose 750 MG; Start 05/05/17 at 06:00 Diagnostic Test (Pha) (Accu-Chek) 1 ea 02 XX ; Start 05/06/17 at 02:00 Insulin Glargine (Lantus) 18 unit DAILY@08 SC ; Start 05/06/17 at 08:00 Diagnostic Test (Pha) (Accu-Chek) 1 ea 02 XX ; Start 05/06/17 at 02:00 Miscellaneous Information 1 ea NOTE XX ; Start 05/05/17 at 10:00 Glucose (Glutose) 15 gm Q15M PRN PO DECREASED GLUCOSE; Start 05/05/17 at 10:00 Glucose (Glutose) 22.5 gm Q15M PRN PO DECREASED GLUCOSE; Start 05/05/17 at 10: 00 Dextrose (D50w Syringe) 25 ml Q15M PRN IV DECREASED GLUCOSE; Start 05/05/17 at 10:00 Dextrose (D50w Syringe) 50 ml Q15M PRN IV DECREASED GLUCOSE; Start 05/05/17 at 10:00 Glucagon (Glucagen) 1 mg Q15M PRN IM DECREASED GLUCOSE; Start 05/05/17 at 10:00 Glucose (Glutose) 15 gm Q15M PRN BUCCAL DECREASED GLUCOSE; Start 05/05/17 at 10 :00 Methylprednisolone Sodium Succinate (Solu-Medrol) 60 mg Q8 IV ; Start 05/05/17 at 14:00; Status Future Hold Ranitidine HCl (Zantac) 150 mg HS PO Last administered on 05/06/17 20:44; Admin Dose 150 MG; Start 05/05/17 at 21:00 Mupirocin (Bactroban) 1 applic BID TOP Last administered on 05/06/17 21:05; Admin Dose 1 APPLIC; Start 05/05/17 at 21:00 Miscellaneous Information (* Miscellaneous Pharmacy Order) ADVAIR AEROSAL INHAILER... ONCE XX ; Start 05/05/17 at 10:30 Guaifenesin (Robitussin Liquid Cup) 200 mg Q4H PRN PO COUGH Last administered on 05/06/17 17:21; Admin Dose 200 MG; Start 05/05/17 at 11:00 Patient Own Medication 1 ea BID INH Last administered on 05/06/17 20:47; Admin Dose 1 EA; Start 05/05/17 at 21:00 NACHO ROLAND DPM May 06, 2017 23:54
[2017-05-07] MEDS: ACCU-CHEK XX SCH ×2 (02:00)
[2017-05-07 02:16] VITALS: BP 108/64; RESP 20
[2017-05-07] MEDS: ALBUTEROL/IPRATROPIUM (NEB) 3 ML AMP HHN SCH ×6 (02:19→21:00)
[2017-05-07 06:22] VITALS: BP 117/59; PULSE 75
[2017-05-07] MEDS: LEVOFLOXACIN 750 MG TABLET PO SCH (06:22)
[2017-05-07] MEDS: FUROSEMIDE 40 MG TAB PO SCH (06:22)
[2017-05-07] MEDS: HYDROCODONE/APAP (10/325) TAB PO PRN ×2 (06:29→17:06)
[2017-05-07 08:00] VITALS: BP 113/61; RESP 20
[2017-05-07] MEDS: INSULIN ASPART [NOVOLOG] 3 ML PEN SC SCH ×4 (08:15→20:35)
[2017-05-07] MEDS: MUPIROCIN 2% 22 GM OINT TOP SCH ×2 (09:09→20:34)
[2017-05-07] MEDS: LINEZOLID 600 MG/D5W (PMX) 300 ML IVPB SCH (09:09)
[2017-05-07] MEDS: INSULIN GLARGINE [LANtus] 3 ML PEN SC SCH (09:11)
[2017-05-07] MEDS: ADVAIR INH SCH ×2 (09:12→20:34)
[2017-05-07] MEDS: HEPARIN 5,000 UNIT/0.5 ML VIAL SC SCH ×2 (09:12→20:39)
[2017-05-07 12:32] LABS: BASOPHILS % 0.3 % (0.0-2.0); EOSINOPHILS # 0.2 10^3/ul (0.0-0.5); EOSINOPHILS % 2.2 % (0.0-7.0); HEMATOCRIT 32.4 % (37.0-47.0); HEMOGLOBIN 9.4 g/dl (12.0-16.0); LYMPHOCYTES # 2.9 10^3/ul (0.8-2.9); LYMPHOCYTES % 26.5 % (15.0-51.0); MEAN CORPUSCULAR HEMOGLOBIN 23.1 pg (29.0-33.0); MEAN CORPUSCULAR VOLUME 79.6 fl (82.0-101.0); MEAN PLATELET VOLUME 9.4 fl (7.4-10.4); MONOCYTE # 0.7 10^3/ul (0.3-0.9); MONOCYTES % 6.8 % (0.0-11.0); NEUTROPHIL # 6.7 10^3/ul (1.6-7.5); NEUTROPHILS % 62.2 % (39.0-77.0); NUCLEATED RED BLOOD CELLS% 0.4 /100WBC (0.0-0.0); PLATELET COUNT 266 10^3/UL (140-415); RED BLOOD COUNT 4.07 10^6/ul (4.20-5.40); RED CELL DISTRIBUTION WIDTH 20.4 % (11.5-14.5); WHITE BLOOD COUNT 10.8 10^3/ul (4.8-10.8)
[2017-05-07 12:47] LABS: CALCIUM 8.6 mg/dl (8.4-10.2); CREATININE 0.66 mg/dl (0.44-1.00); POTASSIUM 3.4 mmol/L (3.5-5.1)
[2017-05-07 14:00] VITALS: BP 116/59; RESP 20
--- NOTE | 2017-05-07 14:20 | PN ---
Date/Time of Note Date/Time of Note DATE: 05/07/17 TIME: 14:16 Assessment/Plan VTE Prophylaxis VTE Prophylaxis Intervention: SCD's Lines/Catheters IV Catheter Type (from Nrsg): Saline Lock Urinary Cath still in place: Yes Reason Cath still needed: other (indicate) Assessment/Plan Chief Complaint/Hosp Course Assessment/Plan: 59-year-old morbidly obese female with a history of COPD, polysubstance abuse, right femoral DVT and chronic bilateral lower extremity cellulitis/ulcer who was not able to obtain her IV antibiotics secondary to cost as outpatient , presented to the ER complaining of worsening bilateral lower extremity cellulitis/ulcer. 1. Bilateral lower extremity cellulitis/open ulceration-still present -Continue IV antibiotics per ID recommendations -Podiatry has been consulted -Follow-up wound culture results -Continue every other day dressing changes with compression. Wound care nurse to apply compression bandages and change every other day. Per podiatry no surgery is recommended for the left foot at this time. 2. COPD exacerbation-slowly improving -Continue supplemental oxygen, bronchodilators inhaled and IV steroids 3. History of right femoral DVT- Patient has previously been on Xarelto, but Doppler ultrasound was negative for DVT -Monitor 4. Iron deficiency anemia -status post PRBC transfusion yesterday, but patient refusing FOBT -Monitor H&H and transfuse as needed, will also give dose of IV iron today as well 5. Morbid obesity with BMI of 41 -Weight reduction advised 6. Elevated blood sugars: HbA1c normal at 5.3, continue sliding scale insulin and Lantus for now. 7. Leukocytosis, likely secondary to steroid versus bilateral lower extremity infection ulcer . patient is afebrile continue IV antibiotics We will continue monitor patient closely for recommendation management treatments medical course Disposition as per podiatry Problems: Subjective 24 Hr Interval Summary Free Text/Dictation continues to complain of having lower extremity discomfort Does have any chest pain or shortness of breath Was seen and evaluated by podiatry and wound care has been consulted Exam/Review of Systems Vital Signs Vitals Vital Signs Date Time Temp Pulse Resp B/P Pulse Ox O2 Delivery O2 Flow Rate FiO2 05/07/17 13:27 84 20 95 21 05/07/17 08:00 98.7 113/61 05/04/17 05:45 2.0 05/03/17 23:10 Room Air Intake and Output 05/06/17 05/06/17 05/07/17 15:00 23:00 07:00 Intake Total 300 ml 2860 ml 340 ml Output Total 3300 ml 800 ml Balance 300 ml -440 ml -460 ml Exam General: The patient is morbidly obese, Not in acute distress. HEENT: Atraumatic, normocephalic. The pupils are equal and round . Neck: Supple with full range of motion. Chest: Normal expansion of the thorax during inspiration Lungs: Clear to auscultation bilaterally Heart: Normal S1-S2, Regular rhythm and rate. Abdomen: Soft , nontender, nondistended , bowel sounds are present. Extremities: Bilateral lower extremity ulcer greater than right, 2 edema no cyanosis Neurologic: Normal mental status,The patient is awake, alert and oriented . Results Result Diagram: 05/07/17 1150 05/07/17 1150 Results 24 hrs Laboratory Tests Test 05/06/17 17:19 05/06/17 20:00 05/06/17 20:43 05/07/17 08:11 Bedside Glucose 181 131 86 Stool Occult Blood POSITIVE Test 05/07/17 11:50 05/07/17 12:24 White Blood Count 10.8 Red Blood Count 4.07 L Hemoglobin 9.4 L Hematocrit 32.4 L Mean Corpuscular Volume 79.6 L Mean Corpuscular Hemoglobin 23.1 L Mean Corpuscular Hemoglobin Concent 29.0 L Red Cell Distribution Width 20.4 H Platelet Count 266 Mean Platelet Volume 9.4 Neutrophils % 62.2 Lymphocytes % 26.5 Monocytes % 6.8 Eosinophils % 2.2 Basophils % 0.3 Nucleated Red Blood Cells % 0.4 H Neutrophils # 6.7 Lymphocytes # 2.9 Monocytes # 0.7 Eosinophils # 0.2 Basophils # 0.0 Nucleated Red Blood Cells # 0.0 Sodium Level 136 Potassium Level 3.4 L Chloride Level 98 Carbon Dioxide Level 33 H Anion Gap 8 Blood Urea Nitrogen 18 Creatinine 0.66 Glucose Level 114 # Calcium Level 8.6 Bedside Glucose 176 Medications Medications Current Medications Acetaminophen (Tylenol Tab) 650 mg Q6H PRN PO PAIN AND OR ELEVATED TEMP Last administered on 05/05/17t 17:44; Admin Dose 650 MG; Start 05/04/17 at 00:00 Ondansetron HCl (Zofran Inj) 4 mg Q6H PRN IV NAUSEA AND/OR VOMITING; Start at 00:00 Heparin Sodium (Porcine) (Heparin (5000 Units/0.5 ml)) 5,000 unit BID SC Last administered on 05/07/17 09:12; Admin Dose 5,000 UNIT; Start 05/04/17 at 09:00 Furosemide (Lasix) 40 mg DAILY@06 PO Last administered on 05/07/17 06:22; Admin Dose 40 MG; Start 05/04/17 at 06:00 Ibuprofen (Motrin) 800 mg Q12H PRN PO PAIN Last administered on 05/06/17 17:46 ; Admin Dose 800 MG; Start 05/04/17 at 00:00 Acetaminophen/ Hydrocodone Bitart ([place] (10)) 1 tab Q6H PRN PO PAIN Last administered on 05/07/17 06:29; Admin Dose 1 TAB; Start 05/04/17 at 05:30 Morphine Sulfate (morphine) 2 mg Q4H PRN IV PAIN; Start 05/04/17 at 16:00 Zolpidem Tartrate (Ambien) 2.5 mg HS PRN PO INSOMNIA Last administered on 02:08; Admin Dose 2.5 MG; Start 05/04/17 at 12:30 Levofloxacin (Levaquin) 750 mg DAILY@06 PO Last administered on 05/07/17 06:22 ; Admin Dose 750 MG; Start 05/05/17 at 06:00 Diagnostic Test (Pha) (Accu-Chek) 1 ea 02 XX ; Start 05/06/17 at 02:00 Insulin Glargine (Lantus) 18 unit DAILY@08 SC Last administered on 05/07/17 09 :11; Admin Dose 18 UNIT; Start 05/06/17 at 08:00 Diagnostic Test (Pha) (Accu-Chek) 1 ea 02 XX ; Start 05/06/17 at 02:00 Miscellaneous Information 1 ea NOTE XX ; Start 05/05/17 at 10:00 Glucose (Glutose) 15 gm Q15M PRN PO DECREASED GLUCOSE; Start 05/05/17 at 10:00 Glucose (Glutose) 22.5 gm Q15M PRN PO DECREASED GLUCOSE; Start 05/05/17 at 10: 00 Dextrose (D50w Syringe) 25 ml Q15M PRN IV DECREASED GLUCOSE; Start 05/05/17 at 10:00 Dextrose (D50w Syringe) 50 ml Q15M PRN IV DECREASED GLUCOSE; Start 05/05/17 at 10:00 Glucagon (Glucagen) 1 mg Q15M PRN IM DECREASED GLUCOSE; Start 05/05/17 at 10:00 Glucose (Glutose) 15 gm Q15M PRN BUCCAL DECREASED GLUCOSE; Start 05/05/17 at 10 :00 Methylprednisolone Sodium Succinate (Solu-Medrol) 60 mg Q8 IV ; Start 05/05/17 at 14:00; Status Future Hold Ranitidine HCl (Zantac) 150 mg HS PO Last administered on 05/06/17 20:44; Admin Dose 150 MG; Start 05/05/17 at 21:00 Mupirocin (Bactroban) 1 applic BID TOP Last administered on 05/07/17 09:09; Admin Dose 1 APPLIC; Start 05/05/17 at 21:00 Miscellaneous Information (* Miscellaneous Pharmacy Order) ADVAIR AEROSAL INHAILER... ONCE XX ; Start 05/05/17 at 10:30 Guaifenesin (Robitussin Liquid Cup) 200 mg Q4H PRN PO COUGH Last administered on 05/06/17 17:21; Admin Dose 200 MG; Start 05/05/17 at 11:00 Patient Own Medication 1 ea BID INH Last administered on 05/07/17 09:12; Admin Dose 1 EA; Start 05/05/17 at 21:00 AMAN ARTEAGA MD May 07, 2017 14:20
[2017-05-07] MEDS ORDERED: VANCOMYCIN IV PER PHARMACY XX SCH (14:30)
[2017-05-07] MEDS ORDERED: LOPERAMIDE 2 MG CAP PO ONE (14:30)
[2017-05-07] MEDS ORDERED: VANCOMYCIN 2 GM in SOD CHLORIDE 0.9% 500 ML IVPB SCH ×2 (15:00→16:30)
[2017-05-07] MEDS: morphine 2 MG INJ IV PRN (15:55)
--- NOTE | 2017-05-07 17:13 | PN ---
DATE: 05/07/2017 SUBJECTIVE DATA: No events overnight. The patient is alert, feels better, looks comfortable. No fevers. Bilateral lower extremity wound cultures growing multiple bacteria. Majority are susceptible to ciprofloxacin. She is growing also MRSA that is susceptible to doxycycline and Enterococcus species susceptible to ampicillin. ANTIMICROBIALS: 1. Levaquin. 2. Zyvox. PHYSICAL EXAMINATION: GENERAL: This is a well-developed, well-nourished, middle-aged woman who is alert, in no distress. HEENT: Head atraumatic, normocephalic. Sclerae anicteric. Buccal mucosa dry. NECK: Supple. CHEST: Rise symmetrical. Breath sounds clear. HEART: S1, S2. ABDOMEN: Soft, bowel sounds present. EXTREMITIES: With bilateral lower extremities dressing intact. The patient has some erythema on her right lower extremity. ASSESSMENT: 1. Bilateral lower extremities, acute on chronic cellulitis with chronic wounds. 2. Methicillin-resistant Staphylococcus aureus nares colonization. 3. Chronic obstructive pulmonary disease. 4. History of polysubstance abuse with noncompliance. 5. History of right hip replacement in 1996. 6. Possible allergy to sulfa as per previous admission note. PLAN: The patient remains stable. Continue present care. Change Zyvox to vancomycin. Anticipate discharge on oral antibiotics once patient is medically cleared. Follow Podiatry recommendations. Dictated By: Lakisha Sharpe NP /bruce/janeth /Document#: [id number]
[2017-05-07 19:27] VITALS: BP 121/57; RESP 20
[2017-05-07] MEDS: RANITIDINE 150 MG TAB PO SCH (20:32)
[2017-05-07] MEDS: IBUPROFEN 800 MG TAB PO PRN (20:47)
[2017-05-08] MEDS: ALBUTEROL/IPRATROPIUM (NEB) 3 ML AMP HHN SCH ×6 (01:41→20:54)
[2017-05-08] MEDS ORDERED: VITAMIN A & D 5 GM OINT PACKET TOP ONE (01:48)
[2017-05-08] MEDS: ZOLPIDEM 5 MG TAB PO PRN (01:56)
[2017-05-08] MEDS: HYDROCODONE/APAP (10/325) TAB PO PRN ×3 (01:56→16:46)
[2017-05-08] MEDS: ACCU-CHEK XX SCH (02:00)
[2017-05-08 02:08] VITALS: BP 138/70; RESP 20
[2017-05-08] MEDS: VANCOMYCIN 1.5 GM in SOD CHLORIDE 0.9% 250 ML IVPB SCH ×2 (06:16→16:47)
[2017-05-08] MEDS: LEVOFLOXACIN 750 MG TABLET PO SCH (06:16)
[2017-05-08] MEDS: FUROSEMIDE 40 MG TAB PO SCH (06:19)
[2017-05-08] MEDS: GUAIFENESIN 20 MG/ML 5ML CUP PO PRN (06:37)
[2017-05-08] MEDS: INSULIN ASPART [NOVOLOG] 3 ML PEN SC SCH (08:11)
[2017-05-08] MEDS: MUPIROCIN 2% 22 GM OINT TOP SCH ×2 (08:13→20:35)
[2017-05-08] MEDS: ADVAIR INH SCH ×2 (08:16→21:12)
[2017-05-08] MEDS: HEPARIN 5,000 UNIT/0.5 ML VIAL SC SCH ×2 (08:21→21:11)
[2017-05-08 08:27] VITALS: BP 103/62; RESP 16
[2017-05-08 10:26] LABS: BASOPHIL # 0.1 10^3/ul (0.0-0.1); BASOPHILS % 0.5 % (0.0-2.0); EOSINOPHILS # 0.4 10^3/ul (0.0-0.5); EOSINOPHILS % 3.8 % (0.0-7.0); HEMOGLOBIN 9.8 g/dl (12.0-16.0); LYMPHOCYTES % 19.5 % (15.0-51.0); MEAN CORPUSCULAR HEMOGLOBIN 23.7 pg (29.0-33.0); MEAN CORPUSCULAR HGB CONC 29.7 g/dl (32.0-37.0); MEAN CORPUSCULAR VOLUME 79.9 fl (82.0-101.0); MEAN PLATELET VOLUME 8.9 fl (7.4-10.4); MONOCYTE # 0.6 10^3/ul (0.3-0.9); MONOCYTES % 5.6 % (0.0-11.0); NEUTROPHIL # 6.8 10^3/ul (1.6-7.5); NEUTROPHILS % 65.8 % (39.0-77.0); NUCLEATED RED BLOOD CELLS% 0.3 /100WBC (0.0-0.0); PLATELET COUNT 269 10^3/UL (140-415); RED BLOOD COUNT 4.13 10^6/ul (4.20-5.40); RED CELL DISTRIBUTION WIDTH 20.3 % (11.5-14.5); WHITE BLOOD COUNT 10.3 10^3/ul (4.8-10.8)
[2017-05-08 10:57] LABS: CALCIUM 8.6 mg/dl (8.4-10.2); CREATININE 0.62 mg/dl (0.44-1.00); POTASSIUM 3.8 mmol/L (3.5-5.1)
[2017-05-08] MEDS: DIPHENHYDRAMINE 25 MG CAP PO PRN ×2 (11:51→20:41)
--- NOTE | 2017-05-08 12:23 | PN ---
Date/Time of Note Date/Time of Note DATE: 05/08/17 TIME: 12:20 Assessment/Plan VTE Prophylaxis VTE Prophylaxis Intervention: other Lines/Catheters IV Catheter Type (from Nrs): Saline Lock Urinary Cath still in place: Yes Reason Cath still needed: other (indicate) Assessment/Plan Chief Complaint/Hosp Course Assessment/Plan: 59-year-old morbidly obese female with a history of COPD, polysubstance abuse, right femoral DVT and chronic bilateral lower extremity cellulitis/ulcer who was not able to obtain her IV antibiotics secondary to cost as outpatient , presented to the ER complaining of worsening bilateral lower extremity cellulitis/ulcer. 1. Bilateral lower extremity cellulitis/open ulceration-still present -Continue IV antibiotics per ID recommendations -Podiatry has been consulted -Follow-up wound culture results -Continue every other day dressing changes with compression. Wound care nurse to apply compression bandages and change every other day. Per podiatry no surgery is recommended for the left foot at this time. 2. COPD exacerbation-slowly improving -Continue supplemental oxygen, bronchodilators inhaled and IV steroids 3. History of right femoral DVT- Patient has previously been on Xarelto, but Doppler ultrasound was negative for DVT -Monitor 4. Iron deficiency anemia -status post PRBC transfusion yesterday, but patient refusing FOBT -Monitor H&H and transfuse as needed, will also give dose of IV iron today as well 5. Morbid obesity with BMI of 41 -Weight reduction advised 6. Elevated blood sugars: HbA1c normal at 5.3, continue sliding scale insulin and Lantus for now. 7. Leukocytosis, likely secondary to steroid versus bilateral lower extremity infection ulcer . patient is afebrile continue IV antibiotics Resolved We will continue monitor patient closely for recommendation management treatments medical course Disposition: Tentative discharge home tomorrow versus Saturday if cleared by podiatry Problems: Subjective 24 Hr Interval Summary Free Text/Dictation Patient complains of having bilateral lower extremity itching She has chronic diarrhea and has had only one bowel movement yesterday Denies of any chest pain or shortness of breath Denies of any fever or chills Exam/Review of Systems Vital Signs Vitals Vital Signs Date Time Temp Pulse Resp B/P Pulse Ox O2 Delivery O2 Flow Rate FiO2 05/08/17 09:28 85 18 94 21 05/08/17 08:27 97.9 103/62 Intake and Output 05/07/17 05/07/17 05/08/17 14:59 22:59 06:59 Intake Total 300 ml 2300 ml 600 ml Output Total 4600 ml 3000 ml Balance 300 ml -2300 ml -2400 ml Exam General: The patient is morbidly obese, Not in acute distress. HEENT: Atraumatic, normocephalic. The pupils are equal and round . Neck: Supple with full range of motion. Chest: Normal expansion of the thorax during inspiration Lungs: Clear to auscultation bilaterally Heart: Normal S1-S2, Regular rhythm and rate. Abdomen: Soft , nontender, nondistended , bowel sounds are present. Extremities: Lateral lower extremity cellulitis improving yesterday exam, no edema no cyanosis Neurologic: Normal mental status,The patient is awake, alert and oriented . Results Result Diagram: 05/08/17 1017 05/08/17 1016 Results 24 hrs Laboratory Tests Test 05/07/17 12:24 05/08/17 10:16 05/08/17 10:17 Bedside Glucose 176 Sodium Level 136 Potassium Level 3.8 Chloride Level 98 Carbon Dioxide Level 32 H Anion Gap 10 Blood Urea Nitrogen 15 Creatinine 0.62 Glucose Level 134 Calcium Level 8.6 White Blood Count 10.3 Red Blood Count 4.13 L Hemoglobin 9.8 L Hematocrit 33.0 L Mean Corpuscular Volume 79.9 L Mean Corpuscular Hemoglobin 23.7 L Mean Corpuscular Hemoglobin Concent 29.7 L Red Cell Distribution Width 20.3 H Platelet Count 269 Mean Platelet Volume 8.9 Neutrophils % 65.8 Lymphocytes % 19.5 Monocytes % 5.6 Eosinophils % 3.8 Basophils % 0.5 Nucleated Red Blood Cells % 0.3 H Neutrophils # 6.8 Lymphocytes # 2.0 Monocytes # 0.6 Eosinophils # 0.4 Basophils # 0.1 Nucleated Red Blood Cells # 0.0 Medications Medications Current Medications Acetaminophen (Tylenol Tab) 650 mg Q6H PRN PO PAIN AND OR ELEVATED TEMP Last administered on 05/05/17t 17:44; Admin Dose 650 MG; Start 05/04/17 at 00:00 Ondansetron HCl (Zofran Inj) 4 mg Q6H PRN IV NAUSEA AND/OR VOMITING; Start at 00:00 Heparin Sodium (Porcine) (Heparin (5000 Units/0.5 ml)) 5,000 unit BID SC Last administered on 05/08/17 08:21; Admin Dose 5,000 UNIT; Start 05/04/17 at 09:00 Furosemide (Lasix) 40 mg DAILY@06 PO Last administered on 05/08/17 06:19; Admin Dose 40 MG; Start 05/04/17 at 06:00 Ibuprofen (Motrin) 800 mg Q12H PRN PO PAIN Last administered on 05/07/17 20:47 ; Admin Dose 800 MG; Start 05/04/17 at 00:00 Acetaminophen/ Hydrocodone Bitart ([place] (10/)) 1 tab Q6H PRN PO PAIN Last administered on 05/08/17 08:47; Admin Dose 1 TAB; Start 05/04/17 at 05:30 Morphine Sulfate (morphine) 2 mg Q4H PRN IV PAIN Last administered on 15:55; Admin Dose 2 MG; Start 05/04/17 at 16:00 Zolpidem Tartrate (Ambien) 2.5 mg HS PRN PO INSOMNIA Last administered on 01:56; Admin Dose 2.5 MG; Start 05/04/17 at 12:30 Levofloxacin (Levaquin) 750 mg DAILY@06 PO Last administered on 05/08/17 06:16 ; Admin Dose 750 MG; Start 05/05/17 at 06:00 Diagnostic Test (Pha) (Accu-Chek) 1 ea 02 XX ; Start 05/06/17 at 02:00 Miscellaneous Information 1 ea NOTE XX ; Start 05/05/17 at 10:00 Dextrose (D50w Syringe) 25 ml Q15M PRN IV DECREASED GLUCOSE; Start 05/05/17 at 10:00 Dextrose (D50w Syringe) 50 ml Q15M PRN IV DECREASED GLUCOSE; Start 05/05/17 at 10:00 Ranitidine HCl (Zantac) 150 mg HS PO Last administered on 05/07/17 20:32; Admin Dose 150 MG; Start 05/05/17 at 21:00 Mupirocin (Bactroban) 1 applic BID TOP Last administered on 05/08/17 08:13; Admin Dose 1 APPLIC; Start 05/05/17 at 21:00 Miscellaneous Information (* Miscellaneous Pharmacy Order) ADVAIR A[employer]OSAL INHAILER... ONCE XX ; Start 05/05/17 at 10:30 Guaifenesin (Robitussin Liquid Cup) 200 mg Q4H PRN PO COUGH Last administered on 05/08/17 06:37; Admin Dose 200 MG; Start 05/05/17 at 11:00 Patient Own Medication 1 ea 1 ea BID INH Last administered on 05/08/17 08:16; Admin Dose 1 EA; Start 05/05/17 at 21:00 Vancomycin HCl/ Sodium Chloride (Vancocin/NS) 250 ml @ 83.333 mls/ hr Q12H IVPB Last administered on 05/08/17 06:16; Admin Dose 83.333 MLS/HR; Start at 05:00 Miscellaneous Information (*Rx Drug Level Order Reminder*) VANCOMYCIN TROUGH AT 0400 ONCE ONCE XX ; Start 05/09/17 at 04:00; Stop 05/09/17 at 04:01 Diphenhydramine HCl (Benadryl) 25 mg Q6H PRN PO ITCHING Last administered on 11:51; Admin Dose 25 MG; Start 05/08/17 at 10:30 Ascorbic Acid (Vitamin C) 250 mg DAILY PO ; Start 05/09/17 at 09:00 Zinc Sulfate (Zinc Sulfate) 220 mg DAILY PO ; Start 05/09/17 at 09:00 Multivitamins Therapeutic (Theragran) 1 tab DAILY PO ; Start 05/09/17 at 09:00 Ranitidine HCl (Zantac) 150 mg BID PO ; Start 05/08/17 at 12:30; Status AMAN HAMLIN MD May 08, 2017 12:23
[2017-05-08] MEDS: RANITIDINE 150 MG TAB PO SCH ×2 (12:36→20:33)
--- NOTE | 2017-05-08 13:02 | CONS ---
Date/Time of Note Date/Time of Note DATE: 05/08/17 TIME: 13:02 Assessment/Plan Assessment/Plan Chief Complaint/Hosp Course SUBJECTIVE DATA: Sleeping looks comfortable no fevers Temperature 97.9 pulse 82 respirations 16 blood pressure 103/62 saturation 94% WBC 10.3 platelets 269 no shift BUN 15 creatinine 0.62 ANTIMICROBIALS: 1. Levaquin. 2. Vanco. PHYSICAL EXAMINATION: GENERAL: This is a well-developed, well-nourished, middle-aged woman who is alert, in no distress. HEENT: Head atraumatic, normocephalic. Sclerae anicteric. Buccal mucosa dry. NECK: Supple. CHEST: Rise symmetrical. Breath sounds clear. HEART: S1, S2. ABDOMEN: Soft, bowel sounds present. EXTREMITIES: With bilateral lower extremities dressing intact. The patient has some erythema on her right lower extremity. ASSESSMENT: 1. Bilateral lower extremities, acute on chronic cellulitis with chronic wounds. 2. Methicillin-resistant Staphylococcus aureus nares colonization. 3. Chronic obstructive pulmonary disease. 4. History of polysubstance abuse with noncompliance. 5. History of right hip replacement in 1996. 6. Possible allergy to sulfa as per previous admission note. PLAN: The patient remains stable. Continue present care, abx. Anticipate discharge on oral antibiotics once patient is medically cleared. Follow Podiatry recommendations. Problems: Consultation Date/Type/Reason Admit Date/Time May 03, 2017 at 21:34 Initial Consult Date 05/06/17 Type of Consultation: ID Exam/Review of Systems Vital Signs Vitals Vital Signs Date Time Temp Pulse Resp B/P Pulse Ox O2 Delivery O2 Flow Rate FiO2 05/08/17 09:28 85 18 94 21 05/08/17 08:27 97.9 103/62 Intake and Output 05/07/17 05/07/17 05/08/17 15:00 23:00 07:00 Intake Total 300 ml 2300 ml 600 ml Output Total 4600 ml 3000 ml Balance 300 ml -2300 ml -2400 ml Results Result Diagram: 05/08/17 1017 05/08/17 1016 Results 24 hrs Laboratory Tests Test 05/08/17 10:16 05/08/17 10:17 Sodium Level 136 Potassium Level 3.8 Chloride Level 98 Carbon Dioxide Level 32 H Anion Gap 10 Blood Urea Nitrogen 15 Creatinine 0.62 Glucose Level 134 Calcium Level 8.6 White Blood Count 10.3 Red Blood Count 4.13 L Hemoglobin 9.8 L Hematocrit 33.0 L Mean Corpuscular Volume 79.9 L Mean Corpuscular Hemoglobin 23.7 L Mean Corpuscular Hemoglobin Concent 29.7 L Red Cell Distribution Width 20.3 H Platelet Count 269 Mean Platelet Volume 8.9 Neutrophils % 65.8 Lymphocytes % 19.5 Monocytes % 5.6 Eosinophils % 3.8 Basophils % 0.5 Nucleated Red Blood Cells % 0.3 H Neutrophils # 6.8 Lymphocytes # 2.0 Monocytes # 0.6 Eosinophils # 0.4 Basophils # 0.1 Nucleated Red Blood Cells # 0.0 Medications Medications Current Medications Acetaminophen (Tylenol Tab) 650 mg Q6H PRN PO PAIN AND OR ELEVATED TEMP Last administered on 05/05/17 17:44; Admin Dose 650 MG; Start 05/04/17 at 00:00 Ondansetron HCl (Zofran Inj) 4 mg Q6H PRN IV NAUSEA AND/OR VOMITING; Start at 00:00 Heparin Sodium (Porcine) (Heparin (5000 Units/0.5 ml)) 5,000 unit BID SC Last administered on 05/08/17 08:21; Admin Dose 5,000 UNIT; Start 05/04/17 at 09:00 Furosemide (Lasix) 40 mg DAILY@06 PO Last administered on 05/08/17 06:19; Admin Dose 40 MG; Start 05/04/17 at 06:00 Ibuprofen (Motrin) 800 mg Q12H PRN PO PAIN Last administered on 05/07/17 20:47 ; Admin Dose 800 MG; Start 05/04/17 at 00:00 Acetaminophen/ Hydrocodone Bitart ([place] (10/325)) 1 tab Q6H PRN PO PAIN Last administered on 05/08/17 08:47; Admin Dose 1 TAB; Start 05/04/17 at 05:30 Morphine Sulfate (morphine) 2 mg Q4H PRN IV PAIN Last administered on 15:55; Admin Dose 2 MG; Start 05/04/17 at 16:00 Zolpidem Tartrate (Ambien) 2.5 mg HS PRN PO INSOMNIA Last administered on 01:56; Admin Dose 2.5 MG; Start 05/04/17 at 12:30 Levofloxacin (Levaquin) 750 mg DAILY@06 PO Last administered on 05/08/17 06:16 ; Admin Dose 750 MG; Start 05/05/17 at 06:00 Diagnostic Test (Pha) (Accu-Chek) 1 ea 02 XX ; Start 05/06/17 at 02:00 Miscellaneous Information 1 ea NOTE XX ; Start 05/05/17 at 10:00 Dextrose (D50w Syringe) 25 ml Q15M PRN IV DECREASED GLUCOSE; Start 05/05/17 at 10:00 Dextrose (D50w Syringe) 50 ml Q15M PRN IV DECREASED GLUCOSE; Start 05/05/17 at 10:00 Mupirocin (Bactroban) 1 applic BID TOP Last administered on 05/08/17 08:13; Admin Dose 1 APPLIC; Start 05/05/17 at 21:00 Miscellaneous Information (* Miscellaneous Pharmacy Order) ADVAIR AEROSAL INHAILER... ONCE XX ; Start 05/05/17 at 10:30 Guaifenesin (Robitussin Liquid Cup) 200 mg Q4H PRN PO COUGH Last administered on 05/08/17 06:37; Admin Dose 200 MG; Start 05/05/17 at 11:00 Patient Own Medication 1 ea 1 ea BID INH Last administered on 05/08/17 08:16; Admin Dose 1 EA; Start 05/05/17 at 21:00 Vancomycin HCl/ Sodium Chloride (Vancocin/NS) 250 ml @ 83.333 mls/ hr Q12H IVPB Last administered on 05/08/17 06:16; Admin Dose 83.333 MLS/HR; Start at 05:00 Miscellaneous Information (*Rx Drug Level Order Reminder*) VANCOMYCIN TROUGH AT 0400 ONCE ONCE XX ; Start 05/09/17 at 04:00; Stop 05/09/17 at 04:01 Diphenhydramine HCl (Benadryl) 25 mg Q6H PRN PO ITCHING Last administered on 11:51; Admin Dose 25 MG; Start 05/08/17 at 10:30 Ascorbic Acid (Vitamin C) 250 mg DAILY PO ; Start 05/09/17 at 09:00 Zinc Sulfate (Zinc Sulfate) 220 mg DAILY PO ; Start 05/09/17 at 09:00 Multivitamins Therapeutic (Theragran) 1 tab DAILY PO ; Start 05/09/17 at 09:00 Ranitidine HCl (Zantac) 150 mg BID PO Last administered on 05/08/17t 12:36; Admin Dose 150 MG; Start 05/08/17 at 12:30 MARQUIS RIVERA NP May 08, 2017 13:02
[2017-05-08 14:36] VITALS: BP 169/91; RESP 18
[2017-05-08] MEDS: morphine 2 MG INJ IV PRN (15:20)
[2017-05-08 19:56] VITALS: BP 121/62; RESP 20
[2017-05-09] MEDS: ALBUTEROL/IPRATROPIUM (NEB) 3 ML AMP HHN SCH ×6 (01:00→20:33)
[2017-05-09] MEDS: ACCU-CHEK XX SCH (01:21)
[2017-05-09 02:07] VITALS: BP 130/73; RESP 20
[2017-05-09] MEDS: morphine 2 MG INJ IV PRN (04:06)
[2017-05-09 04:18] LABS: ABNORMAL IP MESSAGE 1; BASOPHIL # 0.1 10^3/ul (0.0-0.1); BASOPHILS % 0.8 % (0.0-2.0); EOSINOPHILS # 0.6 10^3/ul (0.0-0.5); EOSINOPHILS % 5.7 % (0.0-7.0); HEMATOCRIT 33.4 % (37.0-47.0); HEMOGLOBIN 10.1 g/dl (12.0-16.0); LYMPHOCYTES # 2.3 10^3/ul (0.8-2.9); LYMPHOCYTES % 22.1 % (15.0-51.0); MEAN CORPUSCULAR HEMOGLOBIN 23.9 pg (29.0-33.0); MEAN CORPUSCULAR HGB CONC 30.2 g/dl (32.0-37.0); MEAN PLATELET VOLUME 9.4 fl (7.4-10.4); MONOCYTE # 0.6 10^3/ul (0.3-0.9); NEUTROPHIL # 6.3 10^3/ul (1.6-7.5); NEUTROPHILS % 59.4 % (39.0-77.0); NUCLEATED RED BLOOD CELLS% 0.3 /100WBC (0.0-0.0); PLATELET COUNT 284 10^3/UL (140-415); RED BLOOD COUNT 4.23 10^6/ul (4.20-5.40); RED CELL DISTRIBUTION WIDTH 20.7 % (11.5-14.5); WHITE BLOOD COUNT 10.5 10^3/ul (4.8-10.8)
[2017-05-09 04:23] LABS: POSITIVE DIFF @See below
[2017-05-09 04:32] LABS: CALCIUM 8.9 mg/dl (8.4-10.2); CREATININE 0.62 mg/dl (0.44-1.00); POTASSIUM 4.5 mmol/L (3.5-5.1)
[2017-05-09] MEDS: VANCOMYCIN 1.5 GM in SOD CHLORIDE 0.9% 250 ML IVPB SCH ×2 (04:59→16:57)
[2017-05-09] MEDS: LEVOFLOXACIN 750 MG TABLET PO SCH (04:59)
[2017-05-09] MEDS: FUROSEMIDE 40 MG TAB PO SCH (05:00)
[2017-05-09 07:55] VITALS: BP 130/73; RESP 20
[2017-05-09 08:02] VITALS: BP 140/79; RESP 18
[2017-05-09] MEDS: MUPIROCIN 2% 22 GM OINT TOP SCH ×2 (09:16→20:56)
[2017-05-09] MEDS: MULTIVITAMINS THERAPEUTIC TAB PO SCH (09:17)
[2017-05-09] MEDS: ADVAIR INH SCH ×2 (09:17→20:56)
[2017-05-09] MEDS: ZINC SULFATE 220 MG CAP PO SCH (09:17)
[2017-05-09] MEDS: ASCORBIC ACID 250 MG TAB PO SCH (09:17)
[2017-05-09] MEDS: HEPARIN 5,000 UNIT/0.5 ML VIAL SC SCH ×2 (09:33→21:26)
[2017-05-09] MEDS: RANITIDINE 150 MG TAB PO SCH ×2 (09:34→20:55)
[2017-05-09] MEDS: DIPHENHYDRAMINE 25 MG CAP PO PRN ×2 (13:43→20:56)
[2017-05-09] MEDS: HYDROCODONE/APAP (10/325) TAB PO PRN ×2 (13:43→20:56)
--- NOTE | 2017-05-09 14:27 | PN ---
Date/Time of Note Date/Time of Note DATE: 05/09/17 TIME: 14:19 Assessment/Plan VTE Prophylaxis VTE Prophylaxis Intervention: heparin Lines/Catheters IV Catheter Type (from [facility] Saline Lock Urinary Cath still in place: Yes Reason Cath still needed: other (indicate) Assessment/Plan Assessment/Plan 1. Bilateral lower extremities, acute on chronic cellulitis with chronic wounds , on levaquin and vancomycin, wound care 2. Methicillin-resistant Staphylococcus aureus nares colonization. 3. Chronic obstructive pulmonary disease, stable 4. History of polysubstance abuse with noncompliance. 5. History of right hip replacement in 1996. 6. Possible allergy to sulfa as per previous admission note. 7. Microcytic anemia, stable, follow up with H/H 8. DVT prophylaxis: heparin Exam/Review of Systems Vital Signs Vitals Vital Signs Date Time Temp Pulse Resp B/P Pulse Ox O2 Delivery O2 Flow Rate FiO2 05/09/17 12:45 91 20 96 21 05/09/17 08:02 98.7 140/79 Intake and Output 05/08/17 05/08/17 05/09/17 14:59 22:59 06:59 Intake Total 250 ml 250 ml 100 ml Balance 250 ml 250 ml 100 ml Exam Constitutional: alert, obese, oriented, well developed Psych: nl mood/affect, no complaints Head: atraumatic, normocephalic Eyes: EOMI, PERRL, nl conjunctiva, nl lids, nl sclera ENMT: mucosa pink and moist, nl external ears & nose, nl lips & teeth, nl nasal mucosa & septum Neck: non-tender, supple Respiratory: clear to auscultation, normal air movement, No congested cough, No crackles/rales, No diminished breath sounds, No intercostal retraction, No labored breathing, No other, No respirations, No tactile fremitus, No wheezing Cardiovascular: nl pulses, regular rate and rhythm, No S3, No S4, No bruits, No diastolic murmur, No edema, No gallop, No irregular rhythm, No jugular venous distention (JVD), No murmurs/extra sounds, No other, No rub, No systolic murmur Gastrointestinal: nl liver, spleen, non-tender, soft, No ascites, No bowel sounds, No distended, No firm, No hepatomegaly, No mass , No other, No rebound or guarding, No splenomegaly, No surgical scars, No tender Musculoskeletal: nl extremities to inspection Extremities: other (wounds on both lower extremities) Neurological: [employer] II-XII intact, nl mental status, nl speech, nl strength Results Result Diagram: 05/09/175 05/09/175 Results 24 hrs Laboratory Tests Test 05/09/17 03:55 White Blood Count 10.5 Red Blood Count 4.23 Hemoglobin 10.1 L Hematocrit 33.4 L Mean Corpuscular Volume 79.0 L Mean Corpuscular Hemoglobin 23.9 L Mean Corpuscular Hemoglobin Concent 30.2 L Red Cell Distribution Width 20.7 H Platelet Count 284 Mean Platelet Volume 9.4 Neutrophils % 59.4 Lymphocytes % 22.1 Monocytes % 6.0 Eosinophils % 5.7 Basophils % 0.8 Nucleated Red Blood Cells % 0.3 H Neutrophils # 6.3 Lymphocytes # 2.3 Monocytes # 0.6 Eosinophils # 0.6 H Basophils # 0.1 Nucleated Red Blood Cells # 0.0 Sodium Level 135 Potassium Level 4.5 Chloride Level 99 Carbon Dioxide Level 30 Anion Gap 11 Blood Urea Nitrogen 15 Creatinine 0.62 Glucose Level 111 Calcium Level 8.9 Vancomycin Level Trough 13.3 Medications Medications Current Medications Acetaminophen (Tylenol Tab) 650 mg Q6H PRN PO PAIN AND OR ELEVATED TEMP Last administered on 05/05/17 17:44; Admin Dose 650 MG; Start 05/04/17 at 00:00 Ondansetron HCl (Zofran Inj) 4 mg Q6H PRN IV NAUSEA AND/OR VOMITING; Start at 00:00 Heparin Sodium (Porcine) (Heparin (5000 Units/0.5 ml)) 5,000 unit BID SC Last administered on 05/09/17 09:33; Admin Dose 5,000 UNIT; Start 05/04/17 at 09:00 Furosemide (Lasix) 40 mg DAILY@06 PO Last administered on 05/09/17 05:00; Admin Dose 40 MG; Start 05/04/17 at 06:00 Ibuprofen (Motrin) 800 mg Q12H PRN PO PAIN Last administered on 05/07/17 20:47 ; Admin Dose 800 MG; Start 05/04/17 at 00:00 Acetaminophen/ Hydrocodone Bitart ([employer] [employer] (10/325)) 1 tab Q6H PRN PO PAIN Last administered on 05/09/17 13:43; Admin Dose 1 TAB; Start 05/04/17 at 05:30 Morphine Sulfate (morphine) 2 mg Q4H PRN IV PAIN Last administered on 04:06; Admin Dose 2 MG; Start 05/04/17 at 16:00 Zolpidem Tartrate (Ambien) 2.5 mg HS PRN PO INSOMNIA Last administered on 01:56; Admin Dose 2.5 MG; Start 05/04/17 at 12:30 Levofloxacin (Levaquin) 750 mg DAILY@06 PO Last administered on 05/09/17 04:59 ; Admin Dose 750 MG; Start 05/05/17 at 06:00 Diagnostic Test (Pha) (Accu-Chek) 1 ea 02 XX ; Start 05/06/17 at 02:00 Miscellaneous Information 1 ea NOTE XX ; Start 05/05/17 at 10:00 Dextrose (D50w Syringe) 25 ml Q15M PRN IV DECREASED GLUCOSE; Start 05/05/17 at 10:00 Dextrose (D50w Syringe) 50 ml Q15M PRN IV DECREASED GLUCOSE; Start 05/05/17 at 10:00 Mupirocin (Bactroban) 1 applic BID TOP Last administered on 05/09/17 09:16; Admin Dose 1 APPLIC; Start 05/05/17 at 21:00 Miscellaneous Information (* Miscellaneous Pharmacy Order) ADVAIR AEROSAL INHAILER... ONCE XX ; Start 05/05/17 at 10:30 Guaifenesin (Robitussin Liquid Cup) 200 mg Q4H PRN PO COUGH Last administered on 05/08/17 06:37; Admin Dose 200 MG; Start 05/05/17 at 11:00 Patient Own Medication 1 ea 1 ea BID INH Last administered on 05/09/17 09:17; Admin Dose 1 EA; Start 05/05/17 at 21:00 Vancomycin HCl/ Sodium Chloride (Vancocin/NS) 250 ml @ 83.333 mls/ hr Q12H IVPB Last administered on 05/09/17 04:59; Admin Dose 83.333 MLS/HR; Start at 05:00 Diphenhydramine HCl (Benadryl) 25 mg Q6H PRN PO ITCHING Last administered on 13:43; Admin Dose 25 MG; Start 05/08/17 at 10:30 Ascorbic Acid (Vitamin C) 250 mg DAILY PO Last administered on 05/09/17 09:17 ; Admin Dose 250 MG; Start 05/09/17 at 09:00 Zinc Sulfate (Zinc Sulfate) 220 mg DAILY PO Last administered on 05/09/17 09: 17; Admin Dose 220 MG; Start 05/09/17 at 09:00 Multivitamins Therapeutic (Theragran) 1 tab DAILY PO Last administered on 09:17; Admin Dose 1 TAB; Start 05/09/17 at 09:00 Ranitidine HCl (Zantac) 150 mg BID PO Last administered on 05/09/17 09:34; Admin Dose 150 MG; Start 05/08/17 at 12:30 LIZBETH SOLANO MD May 09, 2017 14:27
--- NOTE | 2017-05-09 14:33 | CONS ---
Date/Time of Note Date/Time of Note DATE: 05/09/17 TIME: 14:32 Assessment/Plan Assessment/Plan Chief Complaint/Hosp Course SUBJECTIVE DATA: Patient is alert, denies pain, looks comfortable Temperature 98.7 pulse 77 respirations 18 blood pressure 140/79 saturation 96% WBC 10.5 H&H 10.1 and 33.4 platelets 284 no shift BUN 15 creatinine 0.62 ANTIMICROBIALS: 1. Levaquin. 2. Vanco. PHYSICAL EXAMINATION: GENERAL: This is a well-developed, well-nourished, middle-aged woman who is alert, in no distress. HEENT: Head atraumatic, normocephalic. Sclerae anicteric. Buccal mucosa dry. NECK: Supple. CHEST: Rise symmetrical. Breath sounds clear. HEART: S1, S2. ABDOMEN: Soft, bowel sounds present. EXTREMITIES: With bilateral lower extremities dressing intact. The patient has some erythema on her right lower extremity. ASSESSMENT: 1. Bilateral lower extremities, acute on chronic cellulitis with chronic wounds. 2. Methicillin-resistant Staphylococcus aureus nares colonization. 3. Chronic obstructive pulmonary disease. 4. History of polysubstance abuse with noncompliance. 5. History of right hip replacement in 1996. 6. Possible allergy to sulfa as per previous admission note. PLAN: The patient remains stable. Continue present care, abx. Anticipate discharge on oral Levaquin and clindamycin. Follow Podiatry recommendations. Problems: Consultation Date/Type/Reason Admit Date/Time May 03, 2017 at 21:34 Initial Consult Date 05/06/17 Type of Consultation: ID Exam/Review of Systems Vital Signs Vitals Vital Signs Date Time Temp Pulse Resp B/P Pulse Ox O2 Delivery O2 Flow Rate FiO2 05/09/17 12:45 91 20 96 21 05/09/17 08:02 98.7 140/79 Intake and Output 05/08/17 05/08/17 05/09/17 15:00 23:00 07:00 Intake Total 250 ml 250 ml 100 ml Balance 250 ml 250 ml 100 ml Results Result Diagram: 05/09/17 0355 05/09/17 0355 Results 24 hrs Laboratory Tests Test 05/09/17 03:55 White Blood Count 10.5 Red Blood Count 4.23 Hemoglobin 10.1 L Hematocrit 33.4 L Mean Corpuscular Volume 79.0 L Mean Corpuscular Hemoglobin 23.9 L Mean Corpuscular Hemoglobin Concent 30.2 L Red Cell Distribution Width 20.7 H Platelet Count 284 Mean Platelet Volume 9.4 Neutrophils % 59.4 Lymphocytes % 22.1 Monocytes % 6.0 Eosinophils % 5.7 Basophils % 0.8 Nucleated Red Blood Cells % 0.3 H Neutrophils # 6.3 Lymphocytes # 2.3 Monocytes # 0.6 Eosinophils # 0.6 H Basophils # 0.1 Nucleated Red Blood Cells # 0.0 Sodium Level 135 Potassium Level 4.5 Chloride Level 99 Carbon Dioxide Level 30 Anion Gap 11 Blood Urea Nitrogen 15 Creatinine 0.62 Glucose Level 111 Calcium Level 8.9 Vancomycin Level Trough 13.3 Medications Medications Current Medications Acetaminophen (Tylenol Tab) 650 mg Q6H PRN PO PAIN AND OR ELEVATED TEMP Last administered on 05/05/17 17:44; Admin Dose 650 MG; Start 05/04/17 at 00:00 Ondansetron HCl (Zofran Inj) 4 mg Q6H PRN IV NAUSEA AND/OR VOMITING; Start at 00:00 Heparin Sodium (Porcine) (Heparin (5000 Units/0.5 ml)) 5,000 unit BID SC Last administered on 05/09/17 09:33; Admin Dose 5,000 UNIT; Start 05/04/17 at 09:00 Furosemide (Lasix) 40 mg DAILY@06 PO Last administered on 05/09/17 05:00; Admin Dose 40 MG; Start 05/04/17 at 06:00 Ibuprofen (Motrin) 800 mg Q12H PRN PO PAIN Last administered on 05/07/17 20:47 ; Admin Dose 800 MG; Start 05/04/17 at 00:00 Acetaminophen/ Hydrocodone Bitart ([place] (10/325)) 1 tab Q6H PRN PO PAIN Last administered on 05/09/17 13:43; Admin Dose 1 TAB; Start 05/04/17 at 05:30 Morphine Sulfate (morphine) 2 mg Q4H PRN IV PAIN Last administered on 04:06; Admin Dose 2 MG; Start 05/04/17 at 16:00 Zolpidem Tartrate (Ambien) 2.5 mg HS PRN PO INSOMNIA Last administered on 01:56; Admin Dose 2.5 MG; Start 05/04/17 at 12:30 Levofloxacin (Levaquin) 750 mg DAILY@06 PO Last administered on 05/09/17 04:59 ; Admin Dose 750 MG; Start 05/05/17 at 06:00 Diagnostic Test (Pha) (Accu-Chek) 1 ea 02 XX ; Start 05/06/17 at 02:00 Miscellaneous Information 1 ea NOTE XX ; Start 05/05/17 at 10:00 Dextrose (D50w Syringe) 25 ml Q15M PRN IV DECREASED GLUCOSE; Start 05/05/17 at 10:00 Dextrose (D50w Syringe) 50 ml Q15M PRN IV DECREASED GLUCOSE; Start 05/05/17 at 10:00 Mupirocin (Bactroban) 1 applic BID TOP Last administered on 05/09/17 09:16; Admin Dose 1 APPLIC; Start 05/05/17 at 21:00 Miscellaneous Information (* Miscellaneous Pharmacy Order) ADVAIR A[employer]OSAL INHAILER... ONCE XX ; Start 05/05/17 at 10:30 Guaifenesin (Robitussin Liquid Cup) 200 mg Q4H PRN PO COUGH Last administered on 05/08/17 06:37; Admin Dose 200 MG; Start 05/05/17 at 11:00 Patient Own Medication 1 ea 1 ea BID INH Last administered on 05/09/17 09:17; Admin Dose 1 EA; Start 05/05/17 at 21:00 Vancomycin HCl/ Sodium Chloride (Vancocin/NS) 250 ml @ 83.333 mls/ hr Q12H IVPB Last administered on 05/09/17 04:59; Admin Dose 83.333 MLS/HR; Start at 05:00 Diphenhydramine HCl (Benadryl) 25 mg Q6H PRN PO ITCHING Last administered on 13:43; Admin Dose 25 MG; Start 05/08/17 at 10:30 Ascorbic Acid (Vitamin C) 250 mg DAILY PO Last administered on 05/09/17 09:17 ; Admin Dose 250 MG; Start 05/09/17 at 09:00 Zinc Sulfate (Zinc Sulfate) 220 mg DAILY PO Last administered on 05/09/17 09: 17; Admin Dose 220 MG; Start 05/09/17 at 09:00 Multivitamins Therapeutic (Theragran) 1 tab DAILY PO Last administered on 09:17; Admin Dose 1 TAB; Start 05/09/17 at 09:00 Ranitidine HCl (Zantac) 150 mg BID PO Last administered on 05/09/17 09:34; Admin Dose 150 MG; Start 05/08/17 at 12:30 MARQUIS RIVERA NP May 09, 2017 14:33
[2017-05-09 19:47] VITALS: BP 98/57; RESP 20
[2017-05-09] MEDS: GUAIFENESIN 20 MG/ML 5ML CUP PO PRN (20:55)
[2017-05-10] MEDS: ALBUTEROL/IPRATROPIUM (NEB) 3 ML AMP HHN SCH ×6 (00:14→20:40)
[2017-05-10] MEDS: ACCU-CHEK XX SCH (00:53)
[2017-05-10 02:00] VITALS: BP 93/56; RESP 20
[2017-05-10] MEDS: ZOLPIDEM 5 MG TAB PO PRN ×2 (02:10→23:04)
[2017-05-10] MEDS: VANCOMYCIN 1.5 GM in SOD CHLORIDE 0.9% 250 ML IVPB SCH ×2 (05:41→17:15)
[2017-05-10] MEDS: LEVOFLOXACIN 750 MG TABLET PO SCH (06:49)
[2017-05-10] MEDS: FUROSEMIDE 40 MG TAB PO SCH (06:50)
[2017-05-10 07:45] VITALS: BP 110/60; RESP 18
[2017-05-10] MEDS: ASCORBIC ACID 250 MG TAB PO SCH (09:35)
[2017-05-10] MEDS: DIPHENHYDRAMINE 25 MG CAP PO PRN ×2 (09:35→19:06)
[2017-05-10] MEDS: ZINC SULFATE 220 MG CAP PO SCH (09:35)
[2017-05-10] MEDS: RANITIDINE 150 MG TAB PO SCH ×2 (09:35→20:32)
[2017-05-10] MEDS: MULTIVITAMINS THERAPEUTIC TAB PO SCH (09:35)
[2017-05-10] MEDS: MUPIROCIN 2% 22 GM OINT TOP SCH ×2 (09:36→20:32)
[2017-05-10] MEDS: ADVAIR INH SCH ×2 (09:36→20:33)
[2017-05-10] MEDS: HYDROCODONE/APAP (10/325) TAB PO PRN ×3 (09:47→20:32)
[2017-05-10] MEDS: HEPARIN 5,000 UNIT/0.5 ML VIAL SC SCH ×2 (09:49→20:39)
[2017-05-10 10:57] LABS: BASOPHIL # 0.1 10^3/ul (0.0-0.1); BASOPHILS % 0.5 % (0.0-2.0); EOSINOPHILS # 0.6 10^3/ul (0.0-0.5); EOSINOPHILS % 5.7 % (0.0-7.0); HEMATOCRIT 37.1 % (37.0-47.0); HEMOGLOBIN 10.9 g/dl (12.0-16.0); LYMPHOCYTES % 18.1 % (15.0-51.0); MEAN CORPUSCULAR HEMOGLOBIN 23.6 pg (29.0-33.0); MEAN CORPUSCULAR HGB CONC 29.4 g/dl (32.0-37.0); MEAN CORPUSCULAR VOLUME 80.3 fl (82.0-101.0); MEAN PLATELET VOLUME 9.3 fl (7.4-10.4); MONOCYTE # 0.8 10^3/ul (0.3-0.9); MONOCYTES % 7.2 % (0.0-11.0); NEUTROPHILS % 64.1 % (39.0-77.0); PLATELET COUNT 305 10^3/UL (140-415); RED BLOOD COUNT 4.62 10^6/ul (4.20-5.40); RED CELL DISTRIBUTION WIDTH 20.9 % (11.5-14.5); WHITE BLOOD COUNT 10.9 10^3/ul (4.8-10.8)
[2017-05-10 11:19] LABS: IRON 59 ug/dl (35-150)
[2017-05-10 11:28] LABS: TOTAL IRON BINDING CAPACITY 432 ug/dl (241-421)
--- NOTE | 2017-05-10 14:01 | PN ---
Date/Time of Note Date/Time of Note DATE: 05/10/17 TIME: 13:59 Assessment/Plan VTE Prophylaxis VTE Prophylaxis Intervention: heparin Lines/Catheters IV Catheter Type (from Nrs): Peripheral IV Urinary Cath still in place: Yes Reason Cath still needed: other (indicate) Assessment/Plan Assessment/Plan 1. Bilateral lower extremities, acute on chronic cellulitis with chronic wounds , on levaquin and vancomycin, wound care, plan to discharge home tomorrow with home health 2. Methicillin-resistant Staphylococcus aureus nares colonization. 3. Chronic obstructive pulmonary disease, stable 4. History of polysubstance abuse with noncompliance. 5. History of right hip replacement in 1996. 6. Possible allergy to sulfa as per previous admission note. 7. Microcytic anemia, stable, follow up with H/H 8. DVT prophylaxis: heparin Subjective 24 Hr Interval Summary Free Text/Dictation states still weak with pain on lower extremities. Afebrile Exam/Review of Systems Vital Signs Vitals Vital Signs Date Time Temp Pulse Resp B/P Pulse Ox O2 Delivery O2 Flow Rate FiO2 05/10/17 12:34 84 20 99 21 05/10/17 07:45 98.8 110/60 Intake and Output 05/09/17 05/09/17 05/10/17 15:00 23:00 07:00 Intake Total 1550 ml 1980 ml Output Total 3000 ml 3400 ml Balance -1450 ml -1420 ml Exam Constitutional: alert, obese, oriented, well developed Psych: nl mood/affect, no complaints Head: atraumatic, normocephalic Eyes: EOMI, PERRL, nl conjunctiva, nl lids ENMT: nl external ears & nose, nl lips & teeth, nl nasal mucosa & septum Neck: non-tender, supple Respiratory: clear to auscultation, normal air movement, No congested cough, No crackles/rales, No diminished breath sounds, No intercostal retraction, No labored breathing, No other, No respirations, No tactile fremitus, No wheezing Cardiovascular: nl pulses, regular rate and rhythm, No S3, No S4, No bruits, No diastolic murmur, No edema, No gallop, No irregular rhythm, No jugular venous distention (JVD), No murmurs/extra sounds, No other, No rub, No systolic murmur Gastrointestinal: nl liver, spleen, non-tender, soft, No ascites, No bowel sounds, No distended, No firm, No hepatomegaly, No mass , No other, No rebound or guarding, No splenomegaly, No surgical scars, No tender Musculoskeletal: nl extremities to inspection Extremities: edema, other (wounds on both lower extremities) Neurological: [employer] II-XII intact, nl mental status, nl speech, nl strength Skin: nl turgor Results Result Diagram: 05/10/17 1034 05/09/17 0355 Results 24 hrs Laboratory Tests Test 05/10/17 10:34 White Blood Count 10.9 H Red Blood Count 4.62 Hemoglobin 10.9 L Hematocrit 37.1 Mean Corpuscular Volume 80.3 L Mean Corpuscular Hemoglobin 23.6 L Mean Corpuscular Hemoglobin Concent 29.4 L Red Cell Distribution Width 20.9 H Platelet Count 305 Mean Platelet Volume 9.3 Neutrophils % 64.1 Lymphocytes % 18.1 Monocytes % 7.2 Eosinophils % 5.7 Basophils % 0.5 Nucleated Red Blood Cells % 0.0 Neutrophils # 7.0 Lymphocytes # 2.0 Monocytes # 0.8 Eosinophils # 0.6 H Basophils # 0.1 Nucleated Red Blood Cells # 0.0 Iron Level 59 Total Iron Binding Capacity 432 H Percent Iron Saturation 14 L Medications Medications Current Medications Acetaminophen (Tylenol Tab) 650 mg Q6H PRN PO PAIN AND OR ELEVATED TEMP Last administered on 05/05/17 17:44; Admin Dose 650 MG; Start 05/04/17 at 00:00 Ondansetron HCl (Zofran Inj) 4 mg Q6H PRN IV NAUSEA AND/OR VOMITING; Start at 00:00 Heparin Sodium (Porcine) (Heparin (5000 Units/0.5 ml)) 5,000 unit BID SC Last administered on 05/10/17 09:49; Admin Dose 5,000 UNIT; Start 05/04/17 at 09:00 Furosemide (Lasix) 40 mg DAILY@06 PO Last administered on 05/10/17 06:50; Admin Dose 40 MG; Start 05/04/17 at 06:00 Ibuprofen (Motrin) 800 mg Q12H PRN PO PAIN Last administered on 05/07/17 20:47 ; Admin Dose 800 MG; Start 05/04/17 at 00:00 Acetaminophen/ Hydrocodone Bitart ([place] ()) 1 tab Q6H PRN PO PAIN Last administered on 05/10/17 09:47; Admin Dose 1 TAB; Start 05/04/17 at 05:30 Morphine Sulfate (morphine) 2 mg Q4H PRN IV PAIN Last administered on 04:06; Admin Dose 2 MG; Start 05/04/17 at 16:00 Zolpidem Tartrate (Ambien) 2.5 mg HS PRN PO INSOMNIA Last administered on 02:10; Admin Dose 2.5 MG; Start 05/04/17 at 12:30 Levofloxacin (Levaquin) 750 mg DAILY@06 PO Last administered on 05/10/17 06:49 ; Admin Dose 750 MG; Start 05/05/17 at 06:00 Diagnostic Test (Pha) (Accu-Chek) 1 ea 02 XX ; Start 05/06/17 at 02:00 Miscellaneous Information 1 ea NOTE XX ; Start 05/05/17 at 10:00 Dextrose (D50w Syringe) 25 ml Q15M PRN IV DECREASED GLUCOSE; Start 05/05/17 at 10:00 Dextrose (D50w Syringe) 50 ml Q15M PRN IV DECREASED GLUCOSE; Start 05/05/17 at 10:00 Mupirocin (Bactroban) 1 applic BID TOP Last administered on 05/10/17 09:36; Admin Dose 1 APPLIC; Start 05/05/17 at 21:00 Miscellaneous Information (* Miscellaneous Pharmacy Order) ADVAIR AEROSAL INHAILER... ONCE XX ; Start 05/05/17 at 10:30 Guaifenesin (Robitussin Liquid Cup) 200 mg Q4H PRN PO COUGH Last administered on 05/09/17 20:55; Admin Dose 200 MG; Start 05/05/17 at 11:00 Patient Own Medication 1 ea 1 ea BID INH Last administered on 05/10/17 09:36; Admin Dose 1 EA; Start 05/05/17 at 21:00 Vancomycin HCl/ Sodium Chloride (Vancocin/NS) 250 ml @ 83.333 mls/ hr Q12H IVPB Last administered on 05/10/17 05:41; Admin Dose 83.333 MLS/HR; Start at 05:00 Diphenhydramine HCl (Benadryl) 25 mg Q6H PRN PO ITCHING Last administered on 09:35; Admin Dose 25 MG; Start 05/08/17 at 10:30 Ascorbic Acid (Vitamin C) 250 mg DAILY PO Last administered on 05/10/17 09:35 ; Admin Dose 250 MG; Start 05/09/17 at 09:00 Zinc Sulfate (Zinc Sulfate) 220 mg DAILY PO Last administered on 05/10/17 09: 35; Admin Dose 220 MG; Start 05/09/17 at 09:00 Multivitamins Therapeutic (Theragran) 1 tab DAILY PO Last administered on 09:35; Admin Dose 1 TAB; Start 05/09/17 at 09:00 Ranitidine HCl (Zantac) 150 mg BID PO Last administered on 05/10/17 09:35; Admin Dose 150 MG; Start 05/08/17 at 12:30 LIZBETH SOLANO MD May 10, 2017 14:01
--- NOTE | 2017-05-10 14:10 | CONS ---
Date/Time of Note Date/Time of Note DATE: 05/10/17 TIME: 14:10 Assessment/Plan Assessment/Plan Chief Complaint/Hosp Course SUBJECTIVE DATA: Patient is alert, denies pain, looks comfortable ANTIMICROBIALS: 1. Levaquin. 2. Vanco. PHYSICAL EXAMINATION: GENERAL: This is a well-developed, well-nourished, middle-aged woman who is alert, in no distress. HEENT: Head atraumatic, normocephalic. Sclerae anicteric. Buccal mucosa dry. NECK: Supple. CHEST: Rise symmetrical. Breath sounds clear. HEART: S1, S2. ABDOMEN: Soft, bowel sounds present. EXTREMITIES: With bilateral lower extremities dressing intact. The patient has some erythema on her right lower extremity. ASSESSMENT: 1. Bilateral lower extremities, acute on chronic cellulitis with chronic wounds. 2. Methicillin-resistant Staphylococcus aureus nares colonization. 3. Chronic obstructive pulmonary disease. 4. History of polysubstance abuse with noncompliance. 5. History of right hip replacement in 1996. 6. Possible allergy to sulfa as per previous admission note. PLAN: The patient remains stable. Continue present care, abx. Anticipate discharge on oral Levaquin and clindamycin. Follow Podiatry recommendations. Problems: Consultation Date/Type/Reason Admit Date/Time May 03, 2017 at 21:34 Initial Consult Date 05/06/17 Type of Consultation: ID Exam/Review of Systems Vital Signs Vitals Vital Signs Date Time Temp Pulse Resp B/P Pulse Ox O2 Delivery O2 Flow Rate FiO2 05/10/17 12:34 84 20 99 21 05/10/17 07:45 98.8 110/60 Intake and Output 05/09/17 05/09/17 05/10/17 15:00 23:00 07:00 Intake Total 1550 ml 1980 ml Output Total 3000 ml 3400 ml Balance -1450 ml -1420 ml Results Result Diagram: 05/10/17 1034 05/09/17 0355 Results 24 hrs Laboratory Tests Test 05/10/17 10:34 White Blood Count 10.9 H Red Blood Count 4.62 Hemoglobin 10.9 L Hematocrit 37.1 Mean Corpuscular Volume 80.3 L Mean Corpuscular Hemoglobin 23.6 L Mean Corpuscular Hemoglobin Concent 29.4 L Red Cell Distribution Width 20.9 H Platelet Count 305 Mean Platelet Volume 9.3 Neutrophils % 64.1 Lymphocytes % 18.1 Monocytes % 7.2 Eosinophils % 5.7 Basophils % 0.5 Nucleated Red Blood Cells % 0.0 Neutrophils # 7.0 Lymphocytes # 2.0 Monocytes # 0.8 Eosinophils # 0.6 H Basophils # 0.1 Nucleated Red Blood Cells # 0.0 Iron Level 59 Total Iron Binding Capacity 432 H Percent Iron Saturation 14 L Medications Medications Current Medications Acetaminophen (Tylenol Tab) 650 mg Q6H PRN PO PAIN AND OR ELEVATED TEMP Last administered on 05/05/17 17:44; Admin Dose 650 MG; Start 05/04/17 at 00:00 Ondansetron HCl (Zofran Inj) 4 mg Q6H PRN IV NAUSEA AND/OR VOMITING; Start at 00:00 Heparin Sodium (Porcine) (Heparin (5000 Units/0.5 ml)) 5,000 unit BID SC Last administered on 05/10/17 09:49; Admin Dose 5,000 UNIT; Start 05/04/17 at 09:00 Furosemide (Lasix) 40 mg DAILY@06 PO Last administered on 05/10/17 06:50; Admin Dose 40 MG; Start 05/04/17 at 06:00 Ibuprofen (Motrin) 800 mg Q12H PRN PO PAIN Last administered on 05/07/17 20:47 ; Admin Dose 800 MG; Start 05/04/17 at 00:00 Acetaminophen/ Hydrocodone Bitart ([place] (10/325)) 1 tab Q6H PRN PO PAIN Last administered on 05/10/17 09:47; Admin Dose 1 TAB; Start 05/04/17 at 05:30 Morphine Sulfate (morphine) 2 mg Q4H PRN IV PAIN Last administered on 04:06; Admin Dose 2 MG; Start 05/04/17 at 16:00 Zolpidem Tartrate (Ambien) 2.5 mg HS PRN PO INSOMNIA Last administered on 02:10; Admin Dose 2.5 MG; Start 05/04/17 at 12:30 Levofloxacin (Levaquin) 750 mg DAILY@06 PO Last administered on 05/10/17 06:49 ; Admin Dose 750 MG; Start 05/05/17 at 06:00 Diagnostic Test (Pha) (Accu-Chek) 1 ea 02 XX ; Start 05/06/17 at 02:00 Miscellaneous Information 1 ea NOTE XX ; Start 05/05/17 at 10:00 Dextrose (D50w Syringe) 25 ml Q15M PRN IV DECREASED GLUCOSE; Start 05/05/17 at 10:00 Dextrose (D50w Syringe) 50 ml Q15M PRN IV DECREASED GLUCOSE; Start 05/05/17 at 10:00 Mupirocin (Bactroban) 1 applic BID TOP Last administered on 05/10/17 09:36; Admin Dose 1 APPLIC; Start 05/05/17 at 21:00 Miscellaneous Information (* Miscellaneous Pharmacy Order) ADVAIR AEROSAL INHAILER... ONCE XX ; Start 05/05/17 at 10:30 Guaifenesin (Robitussin Liquid Cup) 200 mg Q4H PRN PO COUGH Last administered on 05/09/17 20:55; Admin Dose 200 MG; Start 05/05/17 at 11:00 Patient Own Medication 1 ea 1 ea BID INH Last administered on 05/10/17 09:36; Admin Dose 1 EA; Start 05/05/17 at 21:00 Vancomycin HCl/ Sodium Chloride (Vancocin/NS) 250 ml @ 83.333 mls/ hr Q12H IVPB Last administered on 05/10/17 05:41; Admin Dose 83.333 MLS/HR; Start at 05:00 Diphenhydramine HCl (Benadryl) 25 mg Q6H PRN PO ITCHING Last administered on 09:35; Admin Dose 25 MG; Start 05/08/17 at 10:30 Ascorbic Acid (Vitamin C) 250 mg DAILY PO Last administered on 05/10/17 09:35 ; Admin Dose 250 MG; Start 05/09/17 at 09:00 Zinc Sulfate (Zinc Sulfate) 220 mg DAILY PO Last administered on 05/10/17 09: 35; Admin Dose 220 MG; Start 05/09/17 at 09:00 Multivitamins Therapeutic (Theragran) 1 tab DAILY PO Last administered on 09:35; Admin Dose 1 TAB; Start 05/09/17 at 09:00 Ranitidine HCl (Zantac) 150 mg BID PO Last administered on 05/10/17 09:35; Admin Dose 150 MG; Start 05/08/17 at 12:30 MARQUIS RIVERA NP May 10, 2017 14:10
[2017-05-10 14:43] VITALS: BP 99/57; RESP 18
[2017-05-10] MEDS: morphine 2 MG INJ IV PRN (18:14)
[2017-05-10] MEDS: SILVER SULFADIAZINE 1% 400 GM CR TOP SCH (18:14)
[2017-05-10 19:56] VITALS: BP 132/59; RESP 20
[2017-05-11] MEDS: ALBUTEROL/IPRATROPIUM (NEB) 3 ML AMP HHN SCH ×6 (01:00→20:57)
[2017-05-11] MEDS: ACCU-CHEK XX SCH (01:57)
[2017-05-11 02:14] VITALS: BP 122/63; RESP 20
[2017-05-11] MEDS: HYDROCODONE/APAP (10/325) TAB PO PRN ×4 (02:26→23:36)
[2017-05-11] MEDS: DIPHENHYDRAMINE 25 MG CAP PO PRN ×4 (02:28→23:36)
[2017-05-11] MEDS: LEVOFLOXACIN 750 MG TABLET PO SCH (05:13)
[2017-05-11] MEDS: VANCOMYCIN 1.5 GM in SOD CHLORIDE 0.9% 250 ML IVPB SCH ×2 (05:13→16:27)
[2017-05-11] MEDS: FUROSEMIDE 40 MG TAB PO SCH (05:14)
[2017-05-11 08:00] VITALS: BP 123/71; RESP 18
--- NOTE | 2017-05-11 09:55 | PN ---
Date/Time of Note Date/Time of Note DATE: 05/11/17 TIME: 09:54 Assessment/Plan Lines/Catheters IV Catheter Type (from Nrsg): Saline Lock [place] in Place (from Nrsg): Yes Assessment/Plan Problems: (1) Cellulitis and abscess of leg Status: Acute (2) Bilateral leg pain Status: Acute Assessment/Plan Triple layer compression bilateral lower extremity; change q.o.d. Follow up in [facility] clinic after discharge; one week. Exam/Review of Systems Vital Signs Vitals Vital Signs Date Time Temp Pulse Resp B/P Pulse Ox O2 Delivery O2 Flow Rate FiO2 05/11/17 09:23 87 18 96 21 05/11/17 08:00 98.1 123/71 Intake and Output 05/10/17 05/10/17 05/11/17 15:00 23:00 07:00 Intake Total 250 ml 1690 ml 500 ml Output Total 1550 ml 1500 ml Balance 250 ml 140 ml -1000 ml Results Result Diagram: 05/10/17 1034 05/09/17 0355 NACHO ROLAND DPM May 11, 2017 09:55
[2017-05-11] MEDS: RANITIDINE 150 MG TAB PO SCH ×2 (09:56→21:13)
[2017-05-11] MEDS: MULTIVITAMINS THERAPEUTIC TAB PO SCH (09:56)
[2017-05-11] MEDS: ADVAIR INH SCH ×2 (09:57→21:14)
[2017-05-11] MEDS: ZINC SULFATE 220 MG CAP PO SCH (09:57)
[2017-05-11] MEDS: MUPIROCIN 2% 22 GM OINT TOP SCH ×2 (09:57→21:15)
[2017-05-11] MEDS: ASCORBIC ACID 250 MG TAB PO SCH (09:57)
[2017-05-11] MEDS: SILVER SULFADIAZINE 1% 400 GM CR TOP SCH (09:58)
[2017-05-11] MEDS: HEPARIN 5,000 UNIT/0.5 ML VIAL SC SCH ×2 (10:50→21:21)
[2017-05-11 10:54] LABS: CREATININE 0.75 mg/dl (0.44-1.00)
--- NOTE | 2017-05-11 11:45 | PN ---
Date/Time of Note Date/Time of Note DATE: 05/11/17 TIME: 11:40 Assessment/Plan VTE Prophylaxis VTE Prophylaxis Intervention: SCD's Lines/Catheters IV Catheter Type (from Nrsg): Saline Lock Urinary Cath still in place: Yes Reason Cath still needed: other (indicate) (chronic incontinence) Assessment/Plan Assessment/Plan 51 yo F with morbid obesity, h/o PSA, homelessness admitted for bl LE leg wounds with overlying cellulitis PT following, advising OP PT-->CM cs placed cont levo/vanc. transition to levo/clinda at dc anticipate 14 total days of antimicrobial therapy microcytic anemia with +FOBT-->pt needs outpatient GI f/u tentative plan for discharge in AM if CDiff returns neg will need GI, APC, PT outpatient f/u Subjective 24 Hr Interval Summary Free Text/Dictation Doesn't want to be discharged yet. Diarrhea x 1 day Exam/Review of Systems Vital Signs Vitals Vital Signs Date Time Temp Pulse Resp B/P Pulse Ox O2 Delivery O2 Flow Rate FiO2 05/11/17 09:23 87 18 96 21 05/11/17 08:00 98.1 123/71 Intake and Output 05/10/17 05/10/17 05/11/17 15:00 23:00 07:00 Intake Total 250 ml 1690 ml 500 ml Output Total 1550 ml 1500 ml Balance 250 ml 140 ml -1000 ml Exam obese, demanding no mrg abd soft lungs clear legs wrapped Results Result Diagram: 05/10/17 1034 05/11/17 0954 Results 24 hrs Laboratory Tests Test 05/11/17 09:54 Blood Urea Nitrogen 17 Creatinine 0.75 Medications Medications Current Medications Acetaminophen (Tylenol Tab) 650 mg Q6H PRN PO PAIN AND OR ELEVATED TEMP Last administered on 05/05/17 17:44; Admin Dose 650 MG; Start 05/04/17 at 00:00 Ondansetron HCl (Zofran Inj) 4 mg Q6H PRN IV NAUSEA AND/OR VOMITING; Start at 00:00 Heparin Sodium (Porcine) (Heparin (5000 Units/0.5 ml)) 5,000 unit BID SC Last administered on 05/11/17 10:50; Admin Dose 5,000 UNIT; Start 05/04/17 at 09:00 Furosemide (Lasix) 40 mg DAILY@06 PO Last administered on 05/11/17 05:14; Admin Dose 40 MG; Start 05/04/17 at 06:00 Ibuprofen (Motrin) 800 mg Q12H PRN PO PAIN Last administered on 05/07/17 20:47 ; Admin Dose 800 MG; Start 05/04/17 at 00:00 Acetaminophen/ Hydrocodone Bitart ([place] (10/325)) 1 tab Q6H PRN PO PAIN Last administered on 05/11/17 10:56; Admin Dose 1 TAB; Start 05/04/17 at 05:30 Morphine Sulfate (morphine) 2 mg Q4H PRN IV PAIN Last administered on 18:14; Admin Dose 2 MG; Start 05/04/17 at 16:00 Zolpidem Tartrate (Ambien) 2.5 mg HS PRN PO INSOMNIA Last administered on 23:04; Admin Dose 2.5 MG; Start 05/04/17 at 12:30 Levofloxacin (Levaquin) 750 mg DAILY@06 PO Last administered on 05/11/17 05:13 ; Admin Dose 750 MG; Start 05/05/17 at 06:00 Diagnostic Test (Pha) (Accu-Chek) 1 ea 02 XX ; Start 05/06/17 at 02:00 Miscellaneous Information 1 ea NOTE XX ; Start 05/05/17 at 10:00 Dextrose (D50w Syringe) 25 ml Q15M PRN IV DECREASED GLUCOSE; Start 05/05/17 at 10:00 Dextrose (D50w Syringe) 50 ml Q15M PRN IV DECREASED GLUCOSE; Start 05/05/17 at 10:00 Mupirocin (Bactroban) 1 applic BID TOP Last administered on 05/11/17 09:57; Admin Dose 1 APPLIC; Start 05/05/17 at 21:00 Miscellaneous Information (* Miscellaneous Pharmacy Order) ADVAIR AEROSAL INHAILER... ONCE XX ; Start 05/05/17 at 10:30 Guaifenesin (Robitussin Liquid Cup) 200 mg Q4H PRN PO COUGH Last administered on 05/09/17 20:55; Admin Dose 200 MG; Start 05/05/17 at 11:00 Patient Own Medication 1 ea 1 ea BID INH Last administered on 05/11/17 09:57; Admin Dose 1 EA; Start 05/05/17 at 21:00 Vancomycin HCl/ Sodium Chloride (Vancocin/NS) 250 ml @ 83.333 mls/ hr Q12H IVPB Last administered on 05/11/17 05:13; Admin Dose 83.333 MLS/HR; Start at 05:00 Diphenhydramine HCl (Benadryl) 25 mg Q6H PRN PO ITCHING Last administered on 09:56; Admin Dose 25 MG; Start 05/08/17 at 10:30 Ascorbic Acid (Vitamin C) 250 mg DAILY PO Last administered on 05/11/17 09:57 ; Admin Dose 250 MG; Start 05/09/17 at 09:00 Zinc Sulfate (Zinc Sulfate) 220 mg DAILY PO Last administered on 05/11/17 09: 57; Admin Dose 220 MG; Start 05/09/17 at 09:00 Multivitamins Therapeutic (Theragran) 1 tab DAILY PO Last administered on 09:56; Admin Dose 1 TAB; Start 05/09/17 at 09:00 Ranitidine HCl (Zantac) 150 mg BID PO Last administered on 05/11/17 09:56; Admin Dose 150 MG; Start 05/08/17 at 12:30 Silver Sulfadiazine (Thermazene 1% 400 Gm) 1 applic DAILY TOP Last administered on 05/11/17 09:58; Admin Dose 1 APPLIC; Start 05/10/17 at 17:00 JOSE PICKARD MD May 11, 2017 11:45
[2017-05-11] MEDS ORDERED: [UNRECOGNIZED DRUG - OTHER] (11:49)
--- NOTE | 2017-05-11 14:00 | CONS ---
Date/Time of Note Date/Time of Note DATE: 05/11/17 TIME: 14:00 Assessment/Plan Assessment/Plan Chief Complaint/Hosp Course SUBJECTIVE DATA: Patient is alert, denies pain, looks comfortable ANTIMICROBIALS: 1. Levaquin. 2. Vanco. PHYSICAL EXAMINATION: GENERAL: This is a well-developed, well-nourished, middle-aged woman who is alert, in no distress. HEENT: Head atraumatic, normocephalic. Sclerae anicteric. Buccal mucosa dry. NECK: Supple. CHEST: Rise symmetrical. Breath sounds clear. HEART: S1, S2. ABDOMEN: Soft, bowel sounds present. EXTREMITIES: With bilateral lower extremities dressing intact. The patient has some erythema on her right lower extremity. ASSESSMENT: 1. Bilateral lower extremities, acute on chronic cellulitis with chronic wounds. 2. Methicillin-resistant Staphylococcus aureus nares colonization. 3. Chronic obstructive pulmonary disease. 4. History of polysubstance abuse with noncompliance. 5. History of right hip replacement in 1996. 6. Possible allergy to sulfa as per previous admission note. PLAN: The patient remains stable. Continue present care, abx and probiotics. Anticipate discharge on oral Levaquin and clindamycin. Follow Podiatry recommendations. Problems: Consultation Date/Type/Reason Admit Date/Time May 03, 2017 at 21:34 Initial Consult Date 05/06/17 Type of Consultation: ID Exam/Review of Systems Vital Signs Vitals Vital Signs Date Time Temp Pulse Resp B/P Pulse Ox O2 Delivery O2 Flow Rate FiO2 05/11/17 13:03 88 18 95 21 05/11/17 08:00 98.1 123/71 Intake and Output 05/10/17 05/10/17 05/11/17 15:00 23:00 07:00 Intake Total 250 ml 1690 ml 500 ml Output Total 1550 ml 1500 ml Balance 250 ml 140 ml -1000 ml Results Result Diagram: 05/10/17 1034 05/11/17 0954 Results 24 hrs Laboratory Tests Test 05/11/17 09:54 Blood Urea Nitrogen 17 Creatinine 0.75 Medications Medications Current Medications Acetaminophen (Tylenol Tab) 650 mg Q6H PRN PO PAIN AND OR ELEVATED TEMP Last administered on 05/05/17t 17:44; Admin Dose 650 MG; Start 05/04/17 at 00:00 Ondansetron HCl (Zofran Inj) 4 mg Q6H PRN IV NAUSEA AND/OR VOMITING; Start at 00:00 Heparin Sodium (Porcine) (Heparin (5000 Units/0.5 ml)) 5,000 unit BID SC Last administered on 05/11/17 10:50; Admin Dose 5,000 UNIT; Start 05/04/17 at 09:00 Furosemide (Lasix) 40 mg DAILY@06 PO Last administered on 05/11/17 05:14; Admin Dose 40 MG; Start 05/04/17 at 06:00 Ibuprofen (Motrin) 800 mg Q12H PRN PO PAIN Last administered on 05/07/17 20:47 ; Admin Dose 800 MG; Start 05/04/17 at 00:00 Acetaminophen/ Hydrocodone Bitart ([place] ([address])) 1 tab Q6H PRN PO PAIN Last administered on 05/11/17 10:56; Admin Dose 1 TAB; Start 05/04/17 at 05:30 Levofloxacin (Levaquin) 750 mg DAILY@06 PO Last administered on 05/11/17 05:13 ; Admin Dose 750 MG; Start 05/05/17 at 06:00 Diagnostic Test (Pha) (Accu-Chek) 1 ea 02 XX ; Start 05/06/17 at 02:00 Miscellaneous Information 1 ea NOTE XX ; Start 05/05/17 at 10:00 Dextrose (D50w Syringe) 25 ml Q15M PRN IV DECREASED GLUCOSE; Start 05/05/17 at 10:00 Dextrose (D50w Syringe) 50 ml Q15M PRN IV DECREASED GLUCOSE; Start 05/05/17 at 10:00 Mupirocin (Bactroban) 1 applic BID TOP Last administered on 05/11/17 09:57; Admin Dose 1 APPLIC; Start 05/05/17 at 21:00 Miscellaneous Information (* Miscellaneous Pharmacy Order) ADVAIR AEROSAL INHAILER... ONCE XX ; Start 05/05/17 at 10:30 Guaifenesin (Robitussin Liquid Cup) 200 mg Q4H PRN PO COUGH Last administered on 05/09/17 20:55; Admin Dose 200 MG; Start 05/05/17 at 11:00 Patient Own Medication 1 ea 1 ea BID INH Last administered on 05/11/17 09:57; Admin Dose 1 EA; Start 05/05/17 at 21:00 Vancomycin HCl/ Sodium Chloride (Vancocin/NS) 250 ml @ 83.333 mls/ hr Q12H IVPB Last administered on 05/11/17 05:13; Admin Dose 83.333 MLS/HR; Start at 05:00 Diphenhydramine HCl (Benadryl) 25 mg Q6H PRN PO ITCHING Last administered on 09:56; Admin Dose 25 MG; Start 05/08/17 at 10:30 Ascorbic Acid (Vitamin C) 250 mg DAILY PO Last administered on 05/11/17 09:57 ; Admin Dose 250 MG; Start 05/09/17 at 09:00 Zinc Sulfate (Zinc Sulfate) 220 mg DAILY PO Last administered on 05/11/17 09: 57; Admin Dose 220 MG; Start 05/09/17 at 09:00 Multivitamins Therapeutic (Theragran) 1 tab DAILY PO Last administered on 09:56; Admin Dose 1 TAB; Start 05/09/17 at 09:00 Ranitidine HCl (Zantac) 150 mg BID PO Last administered on 05/11/17 09:56; Admin Dose 150 MG; Start 05/08/17 at 12:30 Silver Sulfadiazine (Thermazene 1% 400 Gm) 1 applic DAILY TOP Last administered on 05/11/17 09:58; Admin Dose 1 APPLIC; Start 05/10/17 at 17:00 MARQUIS RIVERA NP May 11, 2017 14:00
[2017-05-11 14:10] VITALS: BP 110/65; RESP 18
[2017-05-11 20:22] VITALS: BP 113/61; RESP 18
[2017-05-11] MEDS: L ACIDOPHIL/B LACTIS/B LONGUM CAPSULE PO SCH (21:13)
[2017-05-12] MEDS: ALBUTEROL/IPRATROPIUM (NEB) 3 ML AMP HHN SCH ×6 (01:00→21:52)
[2017-05-12] MEDS: ACCU-CHEK XX SCH (02:00)
[2017-05-12 02:04] VITALS: BP 114/65; RESP 18
[2017-05-12 04:11] LABS: HAAIG REFLEX REFLEX FILED
[2017-05-12 04:32] LABS: CREATININE 0.7 mg/dl (0.44-1.00)
[2017-05-12] MEDS: VANCOMYCIN 1.5 GM in SOD CHLORIDE 0.9% 250 ML IVPB SCH ×2 (04:47→17:37)
[2017-05-12 05:22] LABS: HEPATITIS B CORE ANTIBODY NEGATIVE (NEGATIVE)
[2017-05-12] MEDS: FUROSEMIDE 40 MG TAB PO SCH (06:12)
[2017-05-12] MEDS: LEVOFLOXACIN 750 MG TABLET PO SCH (06:12)
[2017-05-12] MEDS: MULTIVITAMINS THERAPEUTIC TAB PO SCH (09:03)
[2017-05-12] MEDS: RANITIDINE 150 MG TAB PO SCH ×2 (09:03→21:21)
[2017-05-12] MEDS: ASCORBIC ACID 250 MG TAB PO SCH (09:03)
[2017-05-12] MEDS: L ACIDOPHIL/B LACTIS/B LONGUM CAPSULE PO SCH ×2 (09:03→21:21)
[2017-05-12] MEDS: ZINC SULFATE 220 MG CAP PO SCH (09:03)
[2017-05-12] MEDS: MUPIROCIN 2% 22 GM OINT TOP SCH ×2 (09:04→21:21)
[2017-05-12] MEDS: ADVAIR INH SCH ×2 (09:04→21:21)
[2017-05-12] MEDS: SILVER SULFADIAZINE 1% 400 GM CR TOP SCH (09:06)
[2017-05-12] MEDS: HEPARIN 5,000 UNIT/0.5 ML VIAL SC SCH ×2 (09:14→21:39)
[2017-05-12] MEDS: DIPHENHYDRAMINE 25 MG CAP PO PRN ×2 (09:20→17:37)
[2017-05-12] MEDS: HYDROCODONE/APAP (10/325) TAB PO PRN (09:20)
[2017-05-12] MEDS ORDERED: FURO40TA4 PO (09:22)
[2017-05-12] MEDS ORDERED: SILV20CR13 TOP (09:22)
[2017-05-12] MEDS ORDERED: CLIN-72 PO (09:22)
[2017-05-12] MEDS ORDERED: LEVO750T25 PO (09:22)
--- NOTE | 2017-05-12 09:27 | PDOCDIS ---
Discharge Instructions CONDITION Patient Condition: Stable HOME CARE INSTRUCTIONS: Special Diet: 2GM NA FOLLOW UP/APPOINTMENTS Follow-up Plan Schedule follow up appointments with: Your regular doctor within 7 days The gastroenterologists/stomach doctors using the information the embedded case manager gave you [facility]/amputation prevention center/wound clinic: Regarding your hepatitis A bloodwork, it indicates that you do not have the ANTIBODY against hepatitis A. Please ask your regular doctor if he/she wants to do bloodwork for more recent exposure. JOSE PICKARD MD May 12, 2017 09:27
--- NOTE | 2017-05-12 09:30 | DS ---
Date/Time of Note Date/Time of Note DATE: 05/12/17 TIME: 09:27 Discharge Summary Admission/Discharge Info Admit Date/Time May 03, 2017 at 21:34 Discharge Date/Time Patient Condition: Stable Consults infectious disease, podiatry Procedures 9.16 bl LE dopplers IMPRESSION: No sonographic evidence for deep venous thrombosis. 9.16 wound culture Microbiology GRAM STAIN Final POLYMORPH. LEUKOCYTE RARE EPITHELIAL CELLS RARE . NO ORGANISM SEEN WOUND CULTURE Final Organism 1 PROVIDENCIA STUARTII QUANTITY 1+ Organism 2 K.PNEUMONIAE SSP PNEUMONIAE QUANTITY SCANT GROWTH Organism 3 PSEUDOMONAS AERUGINOSA QUANTITY 1+ Organism 4 METHICILLIN RESISTANT S.AUREUS QUANTITY 1+ . MULTI DRUG RESISTANT ORGANISM Organism 5 ENTEROCOCCUS SPECIES QUANTITY ISOLATED FROM BROTH ONLY Organism 6 CORYNEBACTERIUM SPECIES QUANTITY ISOLATED FROM BROTH ONLY Organism 7 ACINETOBACTER BAUMANNII QUANTITY 1+ 9.17 L foot XR IMPRESSION: 1. Old healed fracture of the distal neck of the fifth metatarsal. 2. Mild deformity of the distal neck of the second metatarsal which may also be due to old fracture. 3. Plantar calcaneal spur. 4. No acute fracture. 5. Otherwise unremarkable images of the left foot. 9.23: Hep A Ab negative Hx of Present Illness This is a 59-year-old morbidly obese female with a history of COPD, polysubstance abuse, right femoral DVT and chronic bilateral lower extremity cellulitis/ulcer who presented to the ER complaining of worsening bilateral lower extremity cellulitis/ulcer. She said that this problem has been going on for the past 3 years requiring multiple hospitalizations. She was last hospitalized about 2 weeks ago at [facility] for the same reason. She said she was discharged on Zyvox and clindamycin but she was not able to fill the prescription because of insurance reasons. She has been noticing draining pus from both of her shins. He has also noted progressively worsening redness and pain on both of her legs. Hospital Course 51 yo F with morbid obesity, h/o PSA, homelessness admitted for bl LE leg wounds with overlying cellulitis. Pt seen by podiatry/wound care which advised wound care and wrapping. abx tailored to wound culture results. Pt to complete 14 days of abx in the outpatient setting. Pt noted to have microcytic anemia, FOBT was +. She was advised to f/u with GI and PCP. ACP f/u advised. Pt seen by PT for chronic LBP. Outpatient PT advised. Home Meds Active Scripts Clindamycin Hcl* (Clindamycin Hcl*) 150 Mg Capsule, 450 MG PO QID for 7 Days, # 84 CAP Prov:JOSE PICKARD MD 05/12/17 Silver Sulfadiazine* (SSD*) 1% - 20 Gm Cream.gm., 1 APPLIC TOP DAILY for 30 Days , #1 TUB apply to leg wounds Prov:JOSE PICKARD MD 05/12/17 Levofloxacin* (Levaquin*) 750 Mg Tablet, 750 MG PO DAILY@06 for 7 Days, #7 TAB Prov:JOSE PICKARD MD 05/12/17 Furosemide* (Furosemide*) 40 Mg Tablet, 40 MG PO DAILY for 30 Days, #30 TAB Prov:JOSE PICKARD MD 05/12/17 [PT eval and treat] No Conflict Check, for back pain, difficulty walking Prov:JOSE PICKARD MD 05/11/17 Reported Medications Salmeterol Xinaf-Fluticasone* (Advair HFA*) 115/ Aerosol Inhaler, 2 INH IH BID , #1 INHALER 05/03/17 Albuterol Sulfate* (Ventolin HFA*) 18 Gm Hfa.aer.ad, 2 PUFF INHALATION Q6H, #1 INHALER 05/03/17 Naproxen* (Naproxen*) 500 Mg Tablet, 500 MG PO TID, TAB 05/03/17 Ibuprofen* (Ibuprofen*) 800 Mg Tab, 800 MG PO Q12 Y for PAIN, TAB 05/03/17 Furosemide* (Furosemide*) 20 Mg Tablet, 20 MG PO Q2D, #60 TAB 05/03/17 Follow-up Plan Schedule follow up appointments with: Your regular doctor within 7 days The gastroenterologists/stomach doctors using the information the block and case maker gave you The [facility] prevention center/wound clinic: Regarding your hepatitis A bloodwork, it indicates that you do not have the ANTIBODY against hepatitis A. Please ask your regular doctor if he/she wants to do bloodwork for more recent exposure. Primary Care Provider Ky Vicente Time spent on discharge: > 30 minutes Pending Labs Laboratory Tests Test 05/11/17 09:54 05/12/17 03:50 Blood Urea Nitrogen 17mg/dl (7-20) 14mg/dl (7-20) Creatinine 0.75mg/dl (0.44-1.00) 0.70mg/dl (0.44-1.00) Vancomycin Level Trough 11.9ug/ml (10.0-20.0) Hepatitis A Antibody Total NEGATIVE (NEGATIVE) Hepatitis B Surface Antigen NEGATIVE (NEGATIVE) Hepatitis B Surface Antibody NEGATIVE (NEGATIVE) Hepatitis B Core Total Antibody NEGATIVE (NEGATIVE) Hepatitis C Antibody NEGATIVE (NEGATIVE) Copies To: CC: [facility] JOSE PICKARD MD May 12, 2017 09:30 NEGATIVE (NEGATIVE) Hepatitis C Antibody NEGATIVE (NEGATIVE) JOSE PICKARD MD May 12, 2017 09:30
[2017-05-12 14:49] VITALS: BP 107/68; RESP 19
--- NOTE | 2017-05-12 15:24 | CONS ---
Date/Time of Note Date/Time of Note DATE: 05/12/17 TIME: 15:21 Assessment/Plan Assessment/Plan Chief Complaint/Hosp Course Assessment/Plan Chief Complaint/Hosp Course SUBJECTIVE DATA: No Acute events overnight. No Fevers. ANTIMICROBIALS: 1. Levaquin. 2. Vanco. PHYSICAL EXAMINATION: GENERAL: This is a well-developed, well-nourished, middle-aged woman who is alert, in no distress. HEENT: Head atraumatic, normocephalic. Sclerae anicteric. Buccal mucosa dry. NECK: Supple. CHEST: Rise symmetrical. Breath sounds clear. HEART: S1, S2. ABDOMEN: Soft, bowel sounds present. EXTREMITIES: With bilateral lower extremities dressing intact. The patient has some erythema on her right lower extremity. ASSESSMENT: 1. Bilateral lower extremities, acute on chronic cellulitis with chronic wounds. 2. Methicillin-resistant Staphylococcus aureus nares colonization. 3. Chronic obstructive pulmonary disease. 4. History of polysubstance abuse with noncompliance. 5. History of right hip replacement in 1996. 6. Possible allergy to sulfa as per previous admission note. PLAN: The patient remains stable. Continue present care, abx and probiotics. Anticipate discharge on oral Levaquin and clindamycin. Follow Podiatry recommendations. Monitor Labs. Problems: Consultation Date/Type/Reason Admit Date/Time May 03, 2017 at 21:34 Initial Consult Date 05/06/17 Type of Consultation: ID Exam/Review of Systems Vital Signs Vitals Vital Signs Date Time Temp Pulse Resp B/P Pulse Ox O2 Delivery O2 Flow Rate FiO2 05/12/17 14:49 98.3 78 19 107/68 95 05/12/17 13:04 21 Intake and Output 05/11/17 05/11/17 05/12/17 15:00 23:00 07:00 Intake Total 250 ml 2560 ml 850 ml Output Total 1600 ml Balance 250 ml 960 ml 850 ml Results Result Diagram: 05/10/17 1034 05/12/17 0350 Results 24 hrs Laboratory Tests Test 05/12/17 03:50 Blood Urea Nitrogen 14 Creatinine 0.70 Vancomycin Level Trough 11.9 Hepatitis A Antibody Total NEGATIVE Hepatitis B Surface Antigen NEGATIVE Hepatitis B Surface Antibody NEGATIVE Hepatitis B Core Total Antibody NEGATIVE Hepatitis C Antibody NEGATIVE Medications Medications Current Medications Acetaminophen (Tylenol Tab) 650 mg Q6H PRN PO PAIN AND OR ELEVATED TEMP Last administered on 05/05/17 17:44; Admin Dose 650 MG; Start 05/04/17 at 00:00 Ondansetron HCl (Zofran Inj) 4 mg Q6H PRN IV NAUSEA AND/OR VOMITING; Start at 00:00 Heparin Sodium (Porcine) (Heparin (5000 Units/0.5 ml)) 5,000 unit BID SC Last administered on 05/12/17 09:14; Admin Dose 5,000 UNIT; Start 05/04/17 at 09:00 Furosemide (Lasix) 40 mg DAILY@06 PO Last administered on 05/12/17 06:12; Admin Dose 40 MG; Start 05/04/17 at 06:00 Ibuprofen (Motrin) 800 mg Q12H PRN PO PAIN Last administered on 05/07/17 20:47 ; Admin Dose 800 MG; Start 05/04/17 at 00:00 Acetaminophen/ Hydrocodone Bitart (Wever (10/325)) 1 tab Q6H PRN PO PAIN Last administered on 05/12/17 09:20; Admin Dose 1 TAB; Start 05/04/17 at 05:30 Levofloxacin (Levaquin) 750 mg DAILY@06 PO Last administered on 05/12/17 06:12 ; Admin Dose 750 MG; Start 05/05/17 at 06:00 Diagnostic Test (Pha) (Accu-Chek) 1 ea 02 XX ; Start 05/06/17 at 02:00 Miscellaneous Information 1 ea NOTE XX ; Start 05/05/17 at 10:00 Dextrose (D50w Syringe) 25 ml Q15M PRN IV DECREASED GLUCOSE; Start 05/05/17 at 10:00 Dextrose (D50w Syringe) 50 ml Q15M PRN IV DECREASED GLUCOSE; Start 05/05/17 at 10:00 Mupirocin (Bactroban) 1 applic BID TOP Last administered on 05/12/17 09:04; Admin Dose 1 APPLIC; Start 05/05/17 at 21:00 Miscellaneous Information (* Miscellaneous Pharmacy Order) ADVAIR AEROSAL INHAILER... ONCE XX ; Start 05/05/17 at 10:30 Guaifenesin (Robitussin Liquid Cup) 200 mg Q4H PRN PO COUGH Last administered on 05/09/17 20:55; Admin Dose 200 MG; Start 05/05/17 at 11:00 Patient Own Medication 1 ea 1 ea BID INH Last administered on 05/12/17 09:04; Admin Dose 1 EA; Start 05/05/17 at 21:00 Vancomycin HCl/ Sodium Chloride (Vancocin/NS) 250 ml @ 83.333 mls/ hr Q12H IVPB Last administered on 05/12/17 04:47; Admin Dose 83.333 MLS/HR; Start at 05:00 Diphenhydramine HCl (Benadryl) 25 mg Q6H PRN PO ITCHING Last administered on 09:20; Admin Dose 25 MG; Start 05/08/17 at 10:30 Ascorbic Acid (Vitamin C) 250 mg DAILY PO Last administered on 05/12/17 09:03 ; Admin Dose 250 MG; Start 05/09/17 at 09:00 Zinc Sulfate (Zinc Sulfate) 220 mg DAILY PO Last administered on 05/12/17 09: 03; Admin Dose 220 MG; Start 05/09/17 at 09:00 Multivitamins Therapeutic (Theragran) 1 tab DAILY PO Last administered on 09:03; Admin Dose 1 TAB; Start 05/09/17 at 09:00 Ranitidine HCl (Zantac) 150 mg BID PO Last administered on 05/12/17 09:03; Admin Dose 150 MG; Start 05/08/17 at 12:30 Silver Sulfadiazine (Thermazene 1% 400 Gm) 1 applic DAILY TOP Last administered on 05/12/17 09:06; Admin Dose 1 APPLIC; Start 05/10/17 at 17:00 Lactobacillus Acidophilus (Florajen3 Capsule) 1 each BID PO Last administered on 05/12/17 09:03; Admin Dose 1 EACH; Start 05/11/17 at 21:00 DILEEP SHELDON NP May 12, 2017 15:24
[2017-05-12] MEDS: IBUPROFEN 800 MG TAB PO PRN (17:37)
[2017-05-12 20:11] VITALS: BP 115/68; RESP 18
[2017-05-13] MEDS: DIPHENHYDRAMINE 25 MG CAP PO PRN ×3 (00:08→11:08)
[2017-05-13] MEDS: HYDROCODONE/APAP (10/325) TAB PO PRN ×2 (00:09→12:35)
[2017-05-13] MEDS: ALBUTEROL/IPRATROPIUM (NEB) 3 ML AMP HHN SCH ×5 (01:00→17:00)
[2017-05-13] MEDS: ACCU-CHEK XX SCH (02:00)
[2017-05-13 02:05] VITALS: BP 107/60; RESP 18
[2017-05-13] MEDS: VANCOMYCIN 1.5 GM in SOD CHLORIDE 0.9% 250 ML IVPB SCH ×2 (04:40→17:00)
[2017-05-13 05:40] VITALS: BP 113/72; PULSE 74
[2017-05-13] MEDS: LEVOFLOXACIN 750 MG TABLET PO SCH (05:41)
[2017-05-13] MEDS: FUROSEMIDE 40 MG TAB PO SCH (05:42)
[2017-05-13 08:01] VITALS: BP 120/64; RESP 20
[2017-05-13] MEDS: L ACIDOPHIL/B LACTIS/B LONGUM CAPSULE PO SCH (09:01)
[2017-05-13] MEDS: ASCORBIC ACID 250 MG TAB PO SCH (09:02)
[2017-05-13] MEDS: ZINC SULFATE 220 MG CAP PO SCH (09:02)
[2017-05-13] MEDS: RANITIDINE 150 MG TAB PO SCH (09:02)
[2017-05-13] MEDS: MULTIVITAMINS THERAPEUTIC TAB PO SCH (09:02)
[2017-05-13] MEDS: SILVER SULFADIAZINE 1% 400 GM CR TOP SCH (09:06)
[2017-05-13] MEDS: MUPIROCIN 2% 22 GM OINT TOP SCH (09:06)
[2017-05-13] MEDS: ADVAIR INH SCH (09:07)
[2017-05-13] MEDS: HEPARIN 5,000 UNIT/0.5 ML VIAL SC SCH (09:13)
[2017-05-13 15:24] VITALS: BP 129/67; RESP 20
--- NOTE | 2017-05-13 15:58 | CONS ---
Date/Time of Note Date/Time of Note DATE: 05/13/17 TIME: 15:57 Assessment/Plan Assessment/Plan Chief Complaint/Hosp Course SUBJECTIVE DATA: Patient is alert, denies pain, looks comfortable ANTIMICROBIALS: 1. Levaquin. 2. Vanco. PHYSICAL EXAMINATION: GENERAL: This is a well-developed, well-nourished, middle-aged woman who is alert, in no distress. HEENT: Head atraumatic, normocephalic. Sclerae anicteric. Buccal mucosa dry. NECK: Supple. CHEST: Rise symmetrical. Breath sounds clear. HEART: S1, S2. ABDOMEN: Soft, bowel sounds present. EXTREMITIES: With bilateral lower extremities dressing intact. The patient has some erythema on her right lower extremity. ASSESSMENT: 1. Bilateral lower extremities, acute on chronic cellulitis with chronic wounds==> resolving. 2. Methicillin-resistant Staphylococcus aureus nares colonization. 3. Chronic obstructive pulmonary disease. 4. History of polysubstance abuse with noncompliance. 5. History of right hip replacement in 1996. 6. Possible allergy to sulfa as per previous admission note. PLAN: The patient remains stable. Continue abx and probiotics. Anticipate discharge on oral Levaquin and clindamycin to complete treatment. Follow Podiatry recommendations. Problems: Consultation Date/Type/Reason Admit Date/Time May 03, 2017 at 21:34 Initial Consult Date 05/06/17 Type of Consultation: ID Exam/Review of Systems Vital Signs Vitals Vital Signs Date Time Temp Pulse Resp B/P Pulse Ox O2 Delivery O2 Flow Rate FiO2 05/13/17 15:24 98.6 96 20 129/67 96 05/13/17 09:33 21 Intake and Output 05/12/17 05/12/17 05/13/17 15:00 23:00 07:00 Intake Total 890 ml 967 ml Output Total 1800 ml 400 ml Balance -1800 ml 490 ml 967 ml Results Result Diagram: 05/10/17 1034 05/12/17 0350 Medications Medications Current Medications Acetaminophen (Tylenol Tab) 650 mg Q6H PRN PO PAIN AND OR ELEVATED TEMP Last administered on 05/05/17t 17:44; Admin Dose 650 MG; Start 05/04/17 at 00:00 Ondansetron HCl (Zofran Inj) 4 mg Q6H PRN IV NAUSEA AND/OR VOMITING; Start at 00:00 Heparin Sodium (Porcine) (Heparin (5000 Units/0.5 ml)) 5,000 unit BID SC Last administered on 05/13/17 09:13; Admin Dose 5,000 UNIT; Start 05/04/17 at 09:00 Furosemide (Lasix) 40 mg DAILY@06 PO Last administered on 05/13/17 05:42; Admin Dose 40 MG; Start 05/04/17 at 06:00 Ibuprofen (Motrin) 800 mg Q12H PRN PO PAIN Last administered on 05/12/17 17:37 ; Admin Dose 800 MG; Start 05/04/17 at 00:00 Acetaminophen/ Hydrocodone Bitart ([place] (10)) 1 tab Q6H PRN PO PAIN Last administered on 05/13/17 12:35; Admin Dose 1 TAB; Start 05/04/17 at 05:30 Levofloxacin (Levaquin) 750 mg DAILY@06 PO Last administered on 05/13/17 05:41 ; Admin Dose 750 MG; Start 05/05/17 at 06:00 Diagnostic Test (Pha) (Accu-Chek) 1 ea 02 XX ; Start 05/06/17 at 02:00 Miscellaneous Information 1 ea NOTE XX ; Start 05/05/17 at 10:00 Dextrose (D50w Syringe) 25 ml Q15M PRN IV DECREASED GLUCOSE; Start 05/05/17 at 10:00 Dextrose (D50w Syringe) 50 ml Q15M PRN IV DECREASED GLUCOSE; Start 05/05/17 at 10:00 Mupirocin (Bactroban) 1 applic BID TOP Last administered on 05/13/17 09:06; Admin Dose 1 APPLIC; Start 05/05/17 at 21:00 Miscellaneous Information (* Miscellaneous Pharmacy Order) ADVAIR AEROSAL INHAILER... ONCE XX ; Start 05/05/17 at 10:30 Guaifenesin (Robitussin Liquid Cup) 200 mg Q4H PRN PO COUGH Last administered on 05/09/17 20:55; Admin Dose 200 MG; Start 05/05/17 at 11:00 Patient Own Medication 1 ea 1 ea BID INH Last administered on 05/13/17 09:07; Admin Dose 1 EA; Start 05/05/17 at 21:00 Vancomycin HCl/ Sodium Chloride (Vancocin/NS) 250 ml @ 83.333 mls/ hr Q12H IVPB Last administered on 05/13/17 04:40; Admin Dose 83.333 MLS/HR; Start at 05:00 Diphenhydramine HCl (Benadryl) 25 mg Q6H PRN PO ITCHING Last administered on 11:08; Admin Dose 25 MG; Start 05/08/17 at 10:30 Ascorbic Acid (Vitamin C) 250 mg DAILY PO Last administered on 05/13/17 09:02 ; Admin Dose 250 MG; Start 05/09/17 at 09:00 Zinc Sulfate (Zinc Sulfate) 220 mg DAILY PO Last administered on 05/13/17 09: 02; Admin Dose 220 MG; Start 05/09/17 at 09:00 Multivitamins Therapeutic (Theragran) 1 tab DAILY PO Last administered on 09:02; Admin Dose 1 TAB; Start 05/09/17 at 09:00 Ranitidine HCl (Zantac) 150 mg BID PO Last administered on 05/13/17 09:02; Admin Dose 150 MG; Start 05/08/17 at 12:30 Silver Sulfadiazine (Thermazene 1% 400 Gm) 1 applic DAILY TOP Last administered on 05/13/17 09:06; Admin Dose 1 APPLIC; Start 05/10/17 at 17:00 Lactobacillus Acidophilus (Florajen3 Capsule) 1 each BID PO Last administered on 05/13/17 09:01; Admin Dose 1 EACH; Start 05/11/17 at 21:00 MARQUIS RIVERA NP May 13, 2017 15:58
== END 2017-05-13 20:00 | disposition home or self-care (01) | DRG 603 ==
LOC: E/R 20:30 → MS2 21:34
PROVIDERS: ADMIT Internal Medicine; ATTEND Internal Medicine
PROC: 30233N1 Transfusion of Nonautologous Red Blood Cells into Peripheral Vein, Percutaneous Approach (ICD-10-PCS; principal; 2017-05-04)
DX: L03.116 Cellulitis of left lower limb (principal); R65.10 Systemic inflammatory response syndrome (SIRS) of non-infectious origin without acute organ dysfunction; E88.81 Metabolic syndrome and other insulin resistance; J44.1 Chronic obstructive pulmonary disease with (acute) exacerbation; E66.2 Morbid (severe) obesity with alveolar hypoventilation; Z68.41 Body mass index [BMI] 40.0-44.9, adult; I87.2 Venous insufficiency (chronic) (peripheral); L03.115 Cellulitis of right lower limb; D50.9 Iron deficiency anemia, unspecified; F17.200 Nicotine dependence, unspecified, uncomplicated; Z71.3 Dietary counseling and surveillance; Z22.322 Carrier or suspected carrier of Methicillin resistant Staphylococcus aureus; B96.1 Klebsiella pneumoniae [K. pneumoniae] as the cause of diseases classified elsewhere; B96.5 Pseudomonas (aeruginosa) (mallei) (pseudomallei) as the cause of diseases classified elsewhere; B95.61 Methicillin susceptible Staphylococcus aureus infection as the cause of diseases classified elsewhere; B95.2 Enterococcus as the cause of diseases classified elsewhere; Z16.24 Resistance to multiple antibiotics; Z96.641 Presence of right artificial hip joint; Z86.718 Personal history of other venous thrombosis and embolism; Z91.14 Patient's other noncompliance with medication regimen
CPT/HCPCS: 36415; 36430; 71010; 73620; 80048; 80053; 80202; 81001; 82270; 82565; 82728; 82962; 83036; 83540; 83605; 83735; 84100; 84484; 84520; 85025; 85610; 85730; 86704; 86706; 86708; 86709; 86803; 86850; 86900; 86901; 86920; 87040; 87070; 87075; 87081; 87086; 87340; 93005; 93970; 94640; 94664; 96374; 96375; 97110; 97116; 97161; 97530; J0692; J1170; J1644; J1815; J2270; J2405; J2543; J2916; J2930; J3370; J7030; J7040; J7050; P9016

== ENCOUNTER 2017-10-22 13:27 | Emergency (ER) | END 2017-10-22 21:20 | disposition home or self-care (01) ==

== ENCOUNTER 2018-02-03 17:51 | Inpatient (IN) | END 2018-02-12 20:30 | disposition home or self-care (01) | DRG 300 ==